=== PATIENT | male | born 1955 | race Caucasian/White ===

== ENCOUNTER 2017-11-18 04:34 | Observation (INO) | payer OTHER ==
[2017-11-18] MEDS ORDERED: NA CHLORIDE 0.9% 500 ML ONE (05:03)
[2017-11-18] MEDS ORDERED: MORPHINE 4 MG/ML SYR ONE (05:03)
[2017-11-18] MEDS ORDERED: ONDANSETRON 4 MG/2 ML VIAL ONE (05:03)
[2017-11-18 05:30] LABS: Potassium 3.8 mmol/L (3.5-5.1)
[2017-11-18 05:37] LABS: Absolute Lymphocytes (CBC) 1.9 K/uL (0.7-4.9); Absolute Monocytes 0.7 K/uL (0.1-1.3); Absolute Neutrophil 5.1 K/uL (1.8-8.0); Basophils % 0.6 % (0-1.3); Eosinophils % 1.9 % (0-4.4); Hematocrit 41.9 % (39.6-49.0); Lymphocytes % 24.3 % (15.3-44.8); MCH 30.3 pg (27.0-35.0); MCV 85.9 fL (80-100); Monocytes % 8.5 % (3.3-12.3); RBC Red Blood Cell Count 4.88 M/uL (4.33-5.43)
[2017-11-18] MEDS ORDERED: KETOROLAC 30 MG/ML INJ ONE (06:12)
--- NOTE | 2017-11-18 06:39 | ER ---
Nurse's Notes [facility] Name: Luis Miguel Gomes Age: 62 yrs Sex: Male : 1955 Arrival Date: 11/18/2017 Time: 04:37 Bed 6 Private MD: Mayank Johnson V Diagnosis: Left ureteral calculus with left obstructive uropathy Presentation: 11/18 04:48 Presenting complaint: Patient states: he thinks he is having a kidney stone he had one bb several years ago and had lithotripsy symptoms today started just prior to arrival with left deep groin pain and difficulty urinating and nausea. Transition of care: patient was not received from another setting of care. Onset of symptoms was November 18, 2017. Risk Assessment: Do you want to hurt yourself or someone else? Patient reports no desire to harm self or others. Initial Sepsis Screen: Does the patient meet any 2 criteria? No. Patient's initial sepsis screen is negative. Does the patient have a suspected source of infection? No. Patient's initial sepsis screen is negative. Care prior to arrival: None. 04:48 Method Of Arrival: Ambulatory bb 04:48 Acuity: PIA 3 bb 04:51 Note pt recently returned from [place] and is on an antimalarial prophylaxis. bb Historical: - Allergies: 04:50 No Known Allergies; bb - Home Meds: 04:50 amlodipine 10 mg tab 1 tab once daily [Active]; metoprolol succinate Oral [Active]; bb pantoprazole 40 mg Oral TbEC 1 tab once daily [Active]; Etodolac Oral [Active]; Fish Oil Oral [Active]; - PMHx: 04:50 Hypertension; bb - PSHx: 04:50 Lithotripsy; bb - Immunization history:: Adult Immunizations up to date. - Social history:: Smoking status: Patient/guardian denies using tobacco, Patient uses alcohol, occasionally. Patient/guardian denies using street drugs. - Ebola Screening: : No symptoms or risks identified at this time. Screenin:11 Abuse screen: Denies threats or abuse. Denies injuries from another. Nutritional lp1 screening: No deficits noted. Tuberculosis screening: No symptoms or risk factors identified. Fall Risk None identified. Assessment: 05:09 General: Appears uncomfortable, Behavior is appropriate for age, restless. Pain: lp1 Complains of pain in left inguinal area Pain currently is 10 out of 10 on a pain scale. Quality of pain is described as sharp, stabbing, Pain began suddenly. Neuro: Level of Consciousness is awake, alert, obeys commands, Oriented to person, place, time, situation. Cardiovascular: Patient's skin is warm and dry. Respiratory: Respiratory effort is even, unlabored. GI: Abdomen is non-distended, Bowel sounds present X 4 quads. Abdomen is tender to palpation in left lower quadrant. : Reports pain in left in suprapubic area with urination. EENT: No signs and/or symptoms were reported regarding the EENT system. Derm: Skin is intact, Skin is diaphoretic, Skin is flushed. Musculoskeletal: Circulation, motion, and sensation intact. 05:30 Reassessment: Patient returned from CT at this time. lp1 06:15 Reassessment: Patient is alert, oriented x 3, equal unlabored respirations, skin lp1 warm/dry/pink. Patient and aware of pending admission Patient states feeling better. Vital Signs: 04:52 BP 159 / 103; Pulse 59; Resp 18 S; Temp 98.5(O); Pulse Ox 97% on R/A; Weight 131.54 kg bb (R); Height 6 ft. 2 in. (187.96 cm) (R); Pain 8/10; 05:07 BP 123 / 82; Pulse 56; Resp 16; Pulse Ox 97% on R/A; lp1 06:15 BP 117 / 76; Pulse 54; Resp 16; Pulse Ox 95% on R/A; lp1 07:26 BP 147 / 95; Pulse 63; Resp 16; Pulse Ox 98% ; sv 04:52 Body Mass Index 37.23 (131.54 kg, 187.96 cm) bb ED Course: 04:37 Patient arrived in ED. es 04:38 Mayank Johnson MD is Private Physician. es 04:49 Triage completed. bb 04:50 Missed attempt(s): 20 gauge in right antecubital area. lp1 04:52 Akhil Cardona MD is Attending Physician. pkl 04:52 Arm band placed on Patient placed in an exam room, on a stretcher, on pulse oximetry. bb Family accompanied patient. 04:55 Inserted saline lock: 20 gauge in left antecubital area, using aseptic technique. Blood lp1 collected. By ELSIE Martin. 05:09 Luanne Liao, RN is Primary Nurse. lp1 05:11 Patient has correct armband on for positive identification. Bed in low position. Call lp1 light in reach. Pulse ox on. NIBP on. 05:[address] via stretcher. kw1 05:22 CT Stone Protocol In Process Unspecified. EDMS 05:25 CT completed. Patient tolerated procedure well. Patient moved back from CT. kw1 06:35 Mayank Johnson MD is Hospitalizing Provider. pkl 06:46 X-ray completed. Portable x-ray completed in exam room. Patient tolerated procedure kw well. 06:52 Primary Nurse role handed off by Luanne Liao RN eb 07:26 No provider procedures requiring assistance completed. Patient admitted, IV remains in sv place. intact. Administered Medications: 05:06 Drug: NS 0.9% 500 ml Route: IV; Rate: bolus; Site: left antecubital; lp1 05:06 Drug: morphine 4 mg Route: IVP; Site: left antecubital; lp1 06:13 Follow up: Response: Pain is decreased lp1 05:06 Drug: Zofran 4 mg Route: IVP; Site: left antecubital; lp1 06:13 Follow up: Response: Marked relief of symptoms lp1 06:13 Drug: TORadol 30 mg Route: IVP; Site: left antecubital; lp1 06:40 Follow up: Response: Pain is decreased lp1 Outcome: 06:38 Decision to Hospitalize by Provider. pkl 07:30 Admitted to Med/surg accompanied by tech, via wheelchair, room 225, with chart, Report sv called to Trish ZIMMERMAN 07:30 Condition: stable 07:30 Instructed on the need for admit. 07:47 Patient left the ED. sv Signatures: Dispatcher [employer] Domitila Sauceda RN Akhil Leal MD MD pkl Carmen Frye Brenda, RN RN bb Whitley, Kimberlee kw Pena, Laura, ELSIE RN lp1 Tonya Coburn kw Kenna Latham
--- NOTE | 2017-11-18 06:39 | EDPHYS ---
Physician Documentation [facility] Name: Luis Miguel Gomes Age: 62 yrs Sex: Male : 1955 Arrival Date: 11/18/2017 Time: 04:37 Bed 6 Private MD: Mayank Johnson V ED Physician Akhil Cardona HPI: 11/18 04:58 This 62 yrs old Male presents to ER via Ambulatory with complaints of pkl Possible Kidney Stone. 04:58 The patient presents with abdominal pain left groin pain. Onset: The symptoms/episode pkl began/occurred just prior to arrival, 1 hour(s) ago. Associated signs and symptoms: Pertinent positives: nausea, difficulty urinating. The patient has experienced similar episodes in the past, several times. Historical: - Allergies: 04:50 No Known Allergies; bb - Home Meds: 04:50 amlodipine 10 mg tab 1 tab once daily [Active]; metoprolol succinate Oral [Active]; bb pantoprazole 40 mg Oral TbEC 1 tab once daily [Active]; Etodolac Oral [Active]; Fish Oil Oral [Active]; - PMHx: 04:50 Hypertension; bb - PSHx: 04:50 Lithotripsy; bb - Immunization history:: Adult Immunizations up to date. - Social history:: Smoking status: Patient/guardian denies using tobacco, Patient uses alcohol, occasionally. Patient/guardian denies using street drugs. - Ebola Screening: : No symptoms or risks identified at this time. ROS: 04:58 Eyes: Negative for injury, pain, redness, and discharge, ENT: Negative for injury, pkl pain, and discharge, Neck: Negative for injury, pain, and swelling, Cardiovascular: Negative for chest pain, palpitations, and edema, Respiratory: Negative for shortness of breath, cough, wheezing, and pleuritic chest pain. 04:58 Abdomen/GI: Positive for abdominal pain, of the left groin. 04:58 Back: Negative for acute changes. 04:58 : Positive for difficulty urinating. 04:58 MS/extremity: Negative for acute changes. 04:58 Skin: Negative for rash. 04:58 Neuro: Negative for altered mental status. Exam: 04:58 Head/Face: Normocephalic, atraumatic. Eyes: Pupils equal round and reactive to light, pkl extra-ocular motions intact. Lids and lashes normal. Conjunctiva and sclera are non-icteric and not injected. Cornea within normal limits. Periorbital areas with no swelling, redness, or edema. ENT: Nares patent. No nasal discharge, no septal abnormalities noted. Tympanic membranes are normal and external auditory canals are clear. Oropharynx with no redness, swelling, or masses, exudates, or evidence of obstruction, uvula midline. Mucous membranes moist. Neck: Trachea midline, no thyromegaly or masses palpated, and no cervical lymphadenopathy. Supple, full range of motion without nuchal rigidity, or vertebral point tenderness. No Meningismus. Chest/axilla: Normal chest wall appearance and motion. Nontender with no deformity. No lesions are appreciated. Cardiovascular: Regular rate and rhythm with a normal S1 and S2. No gallops, murmurs, or rubs. Normal PMI, no JVD. No pulse deficits. Respiratory: Lungs have equal breath sounds bilaterally, clear to auscultation and percussion. No rales, rhonchi or wheezes noted. No increased work of breathing, no retractions or nasal flaring. Abdomen/GI: Soft, non-tender, with normal bowel sounds. No distension or tympany. No guarding or rebound. No evidence of tenderness throughout. Back: No spinal tenderness. No costovertebral tenderness. Full range of motion. Skin: Warm, dry with normal turgor. Normal color with no rashes, no lesions, and no evidence of cellulitis. MS/ Extremity: Pulses equal, no cyanosis. Neurovascular intact. Full, normal range of motion. Neuro: Awake and alert, GCS 15, oriented to person, place, time, and situation. Cranial nerves II-XII grossly intact. Motor strength 5/5 in all extremities. Sensory grossly intact. Cerebellar exam normal. Normal gait. Vital Signs: 04:52 BP 159 / 103; Pulse 59; Resp 18 S; Temp 98.5(O); Pulse Ox 97% on R/A; Weight 131.54 kg bb (R); Height 6 ft. 2 in. (187.96 cm) (R); Pain 8/10; 05:07 BP 123 / 82; Pulse 56; Resp 16; Pulse Ox 97% on R/A; lp1 06:15 BP 117 / 76; Pulse 54; Resp 16; Pulse Ox 95% on R/A; lp1 07:26 BP 147 / 95; Pulse 63; Resp 16; Pulse Ox 98% ; sv 04:52 Body Mass Index 37.23 (131.54 kg, 187.96 cm) bb MDM: 04:52 Patient medically screened. pkl 06:26 Data reviewed: vital signs, nurses notes, lab test result(s), radiologic studies, CT pkl scan. 11/18 04:57 Order name: CBC with Diff; Complete Time: 05:53 pkl 11/18 04:57 Order name: Chem 7; Complete Time: 05:53 pkl 11/18 04:57 Order name: UA pkl 11/18 04:57 Order name: CT Stone Protocol pkl 11/18 06:27 Order name: XRAY CXR (1 view) pkl 11/18 06:27 Order name: EKG; Complete Time: 06:27 pkl Administered Medications: 05:06 Drug: NS 0.9% 500 ml Route: IV; Rate: bolus; Site: left antecubital; lp1 05:06 Drug: morphine 4 mg Route: IVP; Site: left antecubital; lp1 06:13 Follow up: Response: Pain is decreased lp1 05:06 Drug: Zofran 4 mg Route: IVP; Site: left antecubital; lp1 06:13 Follow up: Response: Marked relief of symptoms lp1 06:13 Drug: TORadol 30 mg Route: IVP; Site: left antecubital; lp1 06:40 Follow up: Response: Pain is decreased lp1 Disposition: 11/18/17 06:38 Hospitalization ordered by Mayank Johnson for Observation. Preliminary diagnosis is Left ureteral calculus with left obstructive uropathy. - Bed requested for Telemetry/MedSurg (observation). - Status is Observation. sv - Condition is Stable. - Problem is new. - Symptoms have improved. UTI on Admission? No Signatures: Dispatcher [employer] Domitila Sauceda RN RN sv Webb, Martha RN Akhil Miller MD MD pkl Deena Dalton RN RN bb Luanne Liao RN RN lp1 Corrections: (The following items were deleted from the chart) 06:40 06:38 Hospitalization Ordered by Mayank Johnson MD for Observation. Preliminary diagnosis mw is Left ureteral calculus with left obstructive uropathy. Bed requested for Telemetry/MedSurg (observation). Status is Observation. Condition is Stable. Problem is new. Symptoms have improved. UTI on Admission? No. pkl 07:47 06:40 11/18/2017 06:38 Hospitalization Ordered by Mayank Johnson MD for Observation. sv Preliminary diagnosis is Left ureteral calculus with left obstructive uropathy. Bed requested for Telemetry/MedSurg (observation). Status is Observation. Condition is Stable. Problem is new. Symptoms have improved. UTI on Admission? No. mw
[2017-11-18] MEDS ORDERED: MORPHINE 4 MG/ML SYR IV PRN (06:42)
[2017-11-18] MEDS ORDERED: ACETAMINOPHEN 500 MG TAB PO PRN (06:42)
[2017-11-18] MEDS ORDERED: ONDANSETRON 4 MG/2 ML VIAL IV PRN (06:42)
[2017-11-18] MEDS ORDERED: D5 0.45 NS 1,000 ML IV SCH (07:00)
--- NOTE | 2017-11-18 08:44 | RAD REPORT ---
EXAM DESCRIPTION: CT - Stone Protocol - 11/18/2017 6:11 am CLINICAL HISTORY: Flank pain. left groin pain COMPARISON: Stone Protocol dated 01/14/2017 TECHNIQUE: Axial images were obtained without oral or IV contrast. Lack of contrast limits solid org an and vascular assessment. The [id number] spans the entirety of the system partially obscuring uppermost abdomen and lung bases. Coronal reformatted images were obtained and reviewed. All CT scans are performed using dose optimization technique as appropriate and may include automated exposure control or mA/KV adjustment according to patient size. FINDINGS: The lower lung cruz are clear. Small hiatal hernia. Imaged portions of the liver and spleen show no suspicious findings on non-contrast imaging.Cholecyst ectomy clips. The pancreas and left adrenal gland are normal.14 mm low-density right adrenal gland le lynne is present likely a benign adenoma. No pathologic lymphadenopathy in the abdomen or pelvis. 6 mm stone (1680 HU) is present mid left ureter at the level of L4-5 resulting in moderate left hydro nephrosis. Additional punctate calculi present in both kidneys. No bowel obstruction, free air, free fluid or abscess. Normal appendix noted. No significant bony abnormality. Small bilateral fat containing inguinal hernias. IMPRESSION: 6 mm stone (1680 HU) mid left ureter resulting in moderate left hydronephrosis. Punctate bilateral nephrolithiasis.
--- NOTE | 2017-11-18 08:46 | RAD REPORT ---
EXAM DESCRIPTION: RAD - Chest Single View - 11/18/2017 7:07 am CLINICAL HISTORY: Flank pain Chest pain. COMPARISON: Abdomen 1 View (KUB) dated 01/21/2017; Chest Pa And Lat (2 Views) dated 01/21/2017; Abdome n 1 View (KUB) dated 01/20/2017; CHEST SINGLE VIEW dated 11/07/2012 FINDINGS: Portable technique limits examination quality. The lungs are grossly clear. The heart is mildly enlarged in size. No displaced fractures. IMPRESSION: No acute intrathoracic process suspected.
--- NOTE | 2017-11-18 08:55 | RAD REPORT ---
EXAM DESCRIPTION: RAD - Abdomen 1 View (KUB) - 11/18/2017 8:49 am CLINICAL HISTORY: rule out stone Pain COMPARISON: Abdomen 1 View (KUB) dated 01/21/2017; Abdomen 1 View (KUB) dated 01/20/2017; Stone Protoc ol dated 11/18/2017; Chest Single View dated 11/18/2017 FINDINGS: The bowel gas pattern is non-obstructive. No evidence of free air or pneumatosis. Calcific ation projects superior to the left L5 transverse process compatible with a ureter stone. No significant bony findings. Cholecystectomy clips. IMPRESSION: Calcification superior to the left L5 transverse process noted, compatible with a ureter stone.
[2017-11-18] MEDS ORDERED: Ringers Lactate 1,000 ML IV ONE (10:57)
[2017-11-18] MEDS ORDERED: GENTAMICIN 100 MG/100 ML BAG 100 MG/100 ML BAG IV ONE (11:00)
[2017-11-18] MEDS ORDERED: MIDAZOLAM HCL 2 MG/2 ML INJ ONE (11:51)
[2017-11-18] MEDS ORDERED: FENTANYL CITR 100 MCG/2 ML ONE (12:06)
[2017-11-18] MEDS ORDERED: PROPOFOL 200 MG/20 ML VIAL IV ONE (12:06)
[2017-11-18] MEDS ORDERED: ONDANSETRON HCL 40 MG/20 ML VIAL ONE (12:07)
[2017-11-18] MEDS ORDERED: CODEINE PO PRN (12:38)
[2017-11-18] MEDS ORDERED: ACETAMINOPHEN PO PRN (12:38)
--- NOTE | 2017-11-18 12:47 | P.SSS ---
Patient History Date of Service: 11/18/17 Reason for admission: L SIDE ABDOMEN PAIN, FLANK PAIN. History of Present Illness: MERRY HAS HAD RENAL STONE BEFORE. HE COMES WITH SIMILAR SYMPTOMS. L FLANK AND L ABDOMEN PAIN. HE HAS NO FEVER, NAUSEA, VOMITING. HE IS COMFORTABLE NO Allergies No Known Allergies Allergy (Unverified 01/15/17 01:06) Home Medications: Acetaminophen with Codeine [Acetaminophen-Cod #4 Tablet] 10 mg PO DAILY PRN 09/30 Amlodipine Besylate 10 mg PO DAILY 01/21/17 Metoprolol Succinate/Hctz [Metoprolol ER-Hctz 50-12.5 mg] 35 mg PO DAILY Pantoprazole Sodium 40 mg PO DAILY 01/21/17 Sennosides/Docusate Sodium [Senna-Docusate Sodium Tablet] 200 mg PO DAILY - Past Medical/Surgical History Has patient received pneumonia vaccine in the past: No Diabetic: No -: HTN -: lap hair - Social History Smoking Status: Never smoker Alcohol use: No CD- Drugs: No Caffeine use: No Place of Residence: Home Review of Systems 10-point ROS is otherwise unremarkable Gastrointestinal: Abdominal Pain Physical Examination - Vital Signs Temperature: 97.8 F Blood Pressure: 138/87 Pulse: 58 Respirations: 20 Pulse Ox (%): 94 - Physical Exam General: Alert, Mild distress, Obese HEENT: Atraumatic, PERRLA, Mucous membr. moist/pink, EOMI, Sclerae nonicteric Neck: Supple, 2+ carotid pulse no bruit, No LAD, Without JVD or thyroid abnormality Respiratory: Clear to auscultation bilaterally, Normal air movement Cardiovascular: Regular rate/rhythm, Normal S1 S2 Gastrointestinal: Normal bowel sounds, No tenderness Musculoskeletal: No tenderness Integumentary: No rashes Neurological: Normal gait, Normal speech, Normal strength at 5/5 x4 extr, Normal tone, Normal affect Lymphatics: No axilla or inguinal lymphadenopathy - Studies Laboratory Data (last 24 hrs) 11/18/17 04:50: Sodium 145, Potassium 3.8, BUN 20 H, Creatinine 0.90, Glucose 132 H 11/18/17 04:50: WBC 7.9, Hgb 14.8, Hct 41.9, Plt Count 212 - Diagnosis (Problem(s)) (1) Renal stone Current Visit: No Status: Acute Plan: DR GALVIN IS AWARE, PENDING OR TIMETODAY. DC HOME AFTER THAT. DIET AND FLUID INTAKE ADVISED FOR RENAL STONE. (2) HTN (hypertension) Current Visit: Yes Status: Chronic Plan: ROUTINE FU AT OFFICE WILL WATCH. Qualifiers: Hypertension type: essential hypertension Qualified Code(s): I10 - Essential (primary) hypertension - Disposition Disposition: ROUTINE DISCHARGE
[2017-11-19] MEDS ORDERED: AMLODIPINE 10 MG TAB PO SCH (09:00)
[2017-11-19] MEDS ORDERED: PANTOPRAZOLE 40MG TABLET PO SCH (09:00)
[2017-11-19] MEDS ORDERED: METOPROLOL XL 50 MG TAB PO SCH (09:00)
[2017-11-19] MEDS ORDERED: hydroCHLOROthiazide 12.5 MG CAP PO SCH (09:00)
[2017-11-19] MEDS ORDERED: DOCUSATE NA/SENNA CONC 1 TAB PO SCH (09:00)
== END 2017-11-18 16:39 | disposition home or self-care (01) ==
LOC: ER 04:34 → ERHOLD 06:40 → 2ND 07:31
PROVIDERS: ADMIT Internal Medicine; ATTEND Internal Medicine
PROC: 0TF7XZZ Fragmentation in Left Ureter, External Approach (ICD-10-PCS; principal; 2017-11-18 13:30)
DX: N20.9 Urinary calculus, unspecified (principal); I10 Essential (primary) hypertension; E66.9 Obesity, unspecified; Z68.37 Body mass index [BMI] 37.0-37.9, adult
CPT/HCPCS: 36415; 50590; 71045; 74018; 74176; 76377; 80048; 85025; 96374; 96375; 99285; G0378; J1580; J2250; J2405; J3010

== ENCOUNTER 2017-12-02 09:43 | Day surgery (SDC) | payer OTHER ==
[2017-12-02 09:58] LABS: Absolute Lymphocytes (CBC) 1.5 K/uL (0.7-4.9); Absolute Monocytes 0.6 K/uL (0.1-1.3); Absolute Neutrophil 4.4 K/uL (1.8-8.0); Basophils % 0.7 % (0-1.3); Eosinophils % 2.4 % (0-4.4); Hematocrit 43.4 % (39.6-49.0); MCH 29.6 pg (27.0-35.0); MCV 86.2 fL (80-100); MPV 7.9 fL (7.6-11.3); Monocytes % 8.4 % (3.3-12.3); RBC Red Blood Cell Count 5.03 M/uL (4.33-5.43)
[2017-12-02 09:59] LABS: Protime INR 1.01
[2017-12-02 10:01] LABS: Urine Appearance CLEAR; Urine Bilirubin NEGATIVE (NEG); Urine Blood NEGATIVE (NEG); Urine Color YELLOW; Urine Glucose NEGATIVE (NEG); Urine Protein NEGATIVE (NEG); Urine Specific Gravity 1.015 (1.005-1.030); Urine Urobilinogen 0.2 mg/dL (0.2-1.0)
[2017-12-02 10:12] LABS: Potassium 3.9 mmol/L (3.5-5.1); Uric Acid 5.1 mg/dL (3.5-7.2)
--- NOTE | 2017-12-02 10:13 | RAD REPORT ---
EXAM DESCRIPTION: RAD - Abdomen 1 View (KUB) - 12/02/2017 9:40 am CLINICAL HISTORY: Preop evaluation, pending lithotripsy COMPARISON: KUB December 01 FINDINGS: Linear calcification cluster between the left sacral ala and the left L5 transverse proces s still present. These match the prior day imaging. No other change to calcification pattern. No new finding. IMPRESSION: Linear calcification cluster between the left sacral ala and left L5 transverse process noted and unchanged from prior day study.
[2017-12-02] MEDS ORDERED: GENTAMICIN 100 MG/100 ML BAG 100 MG/100 ML BAG IV ONE (10:15)
[2017-12-02] MEDS ORDERED: Ringers Lactate 1,000 ML IV ONE (10:15)
[2017-12-02 10:21] LABS: Urine Microscopic Reflex ORDER UMIC
[2017-12-02 10:31] LABS: Urine Bacteria <20 /HPF (NONE SEEN); Urine Culture Reflex Order NOT NEEDED; Urine RBC <5 /HPF (NONE SEEN)
[2017-12-02] MEDS ORDERED: LIDOCAINE 2% MPF 5 ML VIAL ONE (11:05)
[2017-12-02] MEDS ORDERED: PROPOFOL 200 MG/20 ML VIAL IV ONE (11:05)
[2017-12-02] MEDS ORDERED: FENTANYL CITR 100 MCG/2 ML ONE (11:05)
[2017-12-02] MEDS ORDERED: MIDAZOLAM HCL 2 MG/2 ML INJ ONE (11:05)
--- NOTE | 2017-12-02 15:36 | EKG ---
Test Date: 2017-12-02 Test Time: 09:21:14 Shank Turner: MELBA MEASUREMENT RESULTS: Intervals: Rate: 50 MS: 172 QRSD: 104 QT: 440 QTc: 401 [place]: P: 54 MS: 172 QRS: 26 T: 28 INTERPRETIVE STATEMENTS: Sinus bradycardia Otherwise normal ECG Compared to ECG 01/21/2017 10:00:08 No significant changes Electronically Signed On 12-02-17 15:34:39 CDT by Ruddy Ron
== END 2017-12-02 12:38 | disposition home or self-care (01) ==
LOC: OR 09:43
PROVIDERS: ATTEND Urology
PROC: 0TF4XZZ Fragmentation in Left Kidney Pelvis, External Approach (ICD-10-PCS; principal; 2017-12-02 12:45)
DX: N20.0 Calculus of kidney (principal); Z53.8 Procedure and treatment not carried out for other reasons; I10 Essential (primary) hypertension; E66.9 Obesity, unspecified; K21.9 Gastro-esophageal reflux disease without esophagitis
CPT/HCPCS: 36415; 74018; 80048; 81003; 81015; 84100; 84550; 85025; 85610; 85730; 87086; 87088; 93005; J1580; J2250; J3010

== ENCOUNTER 2017-12-16 08:50 | Day surgery (SDC) | payer OTHER ==
[2017-12-16] MEDS ORDERED: Ringers Lactate 1,000 ML IV ONE (09:15)
[2017-12-16] MEDS ORDERED: GENTAMICIN 100 MG/100 ML BAG 100 MG/100 ML BAG IV ONE (09:15)
[2017-12-16] MEDS ORDERED: PROPOFOL 200 MG/20 ML VIAL IV ONE (10:11)
[2017-12-16] MEDS ORDERED: FENTANYL CITR 100 MCG/2 ML ONE (10:11)
[2017-12-16] MEDS ORDERED: LIDOCAINE 2% MPF 5 ML VIAL ONE (10:11)
[2017-12-16] MEDS ORDERED: MIDAZOLAM HCL 2 MG/2 ML INJ ONE (10:11)
[2017-12-16] MEDS ORDERED: ONDANSETRON HCL 40 MG/20 ML VIAL ONE (10:13)
--- NOTE | 2017-12-16 10:30 | RAD REPORT ---
EXAM DESCRIPTION: RAD - Abdomen 1 View (KUB) - 12/16/2017 9:14 am CLINICAL HISTORY: ICD N 20.0 FINDINGS: The bowel gas pattern is unremarkable. Three calcifications within the left pelvis have migrated distally when compared to a 12/02/2017 exam ination and are compatible with distal ureteral calculi.
== END 2017-12-16 13:36 | disposition home or self-care (01) ==
LOC: OR 08:50
PROVIDERS: ATTEND Urology
PROC: 0TF7XZZ Fragmentation in Left Ureter, External Approach (ICD-10-PCS; principal; 2017-12-16 11:00)
DX: N20.2 Calculus of kidney with calculus of ureter (principal); I10 Essential (primary) hypertension; K21.9 Gastro-esophageal reflux disease without esophagitis
CPT/HCPCS: 50590; 74018; J1580; J2250; J2405; J3010

== ENCOUNTER 2018-01-01 21:58 | Observation (INO) | payer OTHER ==
--- NOTE | 2018-01-01 22:31 | EDPHYS ---
Physician Documentation [facility] Name: Luis Miguel Gomes Age: 62 yrs Sex: Male : 1955 Arrival Date: 01/01/2018 Time: 21:59 Bed 7 Private MD: Mayank Johnson V ED Physician Marcelo Barker HPI: 01/01 22:25 This 62 yrs old Male presents to ER via Ambulatory with complaints of Chest elisha Tightness, High Blood Pressure. 22:25 The patient or guardian reports chest pain that is located primarily in the substernal elisha area, anterior chest wall, left. Onset: today. The pain does not radiate. Associated signs and symptoms: Pertinent positives: dizziness, recent travel. The chest pain is described as a pressure, squeezing. Modifying factors: The symptoms are alleviated by nothing. the symptoms are aggravated by nothing. Severity of pain: At its worst the pain was mild in the emergency department the pain is unchanged. The patient has not experienced similar symptoms in the past. Historical: - Allergies: 22:17 No Known Allergies; bb - Home Meds: 22:17 amlodipine 10 mg tab 1 tab once daily [Active]; metoprolol succinate 25 mg oral Tb24 1 bb tab once daily [Active]; pantoprazole 40 mg Oral TbEC 1 tab once daily [Active]; - PMHx: 22:17 Hypertension; GERD; bb - PSHx: 22:17 Cholecystectomy; Tonsillectomy; bilateral shoulder spurs; bb - Immunization history:: Adult Immunizations up to date. - Social history:: Smoking status: Patient/guardian denies using tobacco, Patient uses alcohol, occasionally. Patient/guardian denies using street drugs. - Ebola Screening: : No symptoms or risks identified at this time. - Family history:: not pertinent. ROS: 22:25 Constitutional: Negative for fever, chills, and weight loss, Eyes: Negative for injury, elisha pain, redness, and discharge, ENT: Negative for injury, pain, and discharge, Neck: Negative for injury, pain, and swelling, Respiratory: Negative for shortness of breath, cough, wheezing, and pleuritic chest pain, Abdomen/GI: Negative for abdominal pain, nausea, vomiting, diarrhea, and constipation, Back: Negative for injury and pain, : Negative for injury, bleeding, discharge, and swelling, MS/Extremity: Negative for injury and deformity, Skin: Negative for injury, rash, and discoloration, Psych: Negative for depression, anxiety, suicide ideation, homicidal ideation, and hallucinations, Allergy/Immunology: Negative for hives, rash, and allergies, Endocrine: Negative for neck swelling, polydipsia, polyuria, polyphagia, and marked weight changes, Hematologic/Lymphatic: Negative for swollen nodes, abnormal bleeding, and unusual bruising. 22:25 Cardiovascular: Positive for edema. 22:25 Neuro: Positive for dizziness, weakness. Exam: 22:25 Constitutional: This is a well developed, well nourished patient who is awake, alert, elisha and in no acute distress. Head/Face: Normocephalic, atraumatic. Eyes: Pupils equal round and reactive to light, extra-ocular motions intact. Lids and lashes normal. Conjunctiva and sclera are non-icteric and not injected. Cornea within normal limits. Periorbital areas with no swelling, redness, or edema. ENT: Nares patent. No nasal discharge, no septal abnormalities noted. Tympanic membranes are normal and external auditory canals are clear. Oropharynx with no redness, swelling, or masses, exudates, or evidence of obstruction, uvula midline. Mucous membranes moist. Neck: Trachea midline, no thyromegaly or masses palpated, and no cervical lymphadenopathy. Supple, full range of motion without nuchal rigidity, or vertebral point tenderness. No Meningismus. Chest/axilla: Normal chest wall appearance and motion. Nontender with no deformity. No lesions are appreciated. Cardiovascular: Regular rate and rhythm with a normal S1 and S2. No gallops, murmurs, or rubs. Normal PMI, no JVD. No pulse deficits. Abdomen/GI: Soft, non-tender, with normal bowel sounds. No distension or tympany. No guarding or rebound. No evidence of tenderness throughout. Back: No spinal tenderness. No costovertebral tenderness. Full range of motion. Male : Normal genitalia with no discharge or lesions. Skin: Warm, dry with normal turgor. Normal color with no rashes, no lesions, and no evidence of cellulitis. MS/ Extremity: Pulses equal, no cyanosis. Neurovascular intact. Full, normal range of motion. Neuro: Awake and alert, GCS 15, oriented to person, place, time, and situation. Cranial nerves II-XII grossly intact. Motor strength 5/5 in all extremities. Sensory grossly intact. Cerebellar exam normal. Normal gait. Psych: Awake, alert, with orientation to person, place and time. Behavior, mood, and affect are within normal limits. 22:25 Respiratory: the patient does not display signs of respiratory distress, Breath sounds: are clear throughout, Respiratory rate: 18 22:25 Musculoskeletal/extremity: ROM: no acute changes, intact in all extremities, full active range of motion, full passive range of motion, Circulation is intact in all extremities. Sensation intact. Compartment Syndrome exam of affected extremity: is normal. DVT Exam: No signs of deep vein thrombosis. no pain, no swelling, no tenderness, negative Homans' sign noted on exam, no appreciated bluish discoloration, no erythema, no increased warmth. Vital Signs: 22:17 BP 159 / 96; Pulse 58; Resp 18 S; Temp 97.8(O); Pulse Ox 99% on R/A; Weight 133.81 kg bb (R); Height 6 ft. 2 in. (187.96 cm) (R); Pain 2/10; 23:00 BP 149 / 92; Pulse 58; Resp 18; Pulse Ox 98% ; ea 01/02 00:00 BP 135 / 91; Pulse 55; Resp 18; Pulse Ox 98% on R/A; ea 01/01 22:17 Body Mass Index 37.88 (133.81 kg, 187.96 cm) bb MDM: 01/01 22:14 Patient medically screened. [facility] 22:29 Data reviewed: vital signs, nurses notes, lab test result(s), EKG, radiologic studies, [facility] CT scan, plain films. 01/01 22:16 Order name: Basic Metabolic Panel 01/01 22:16 Order name: CBC with Diff 01/01 22:16 Order name: LFT's; Complete Time: 23:06 01/01 22:16 Order name: Magnesium; Complete Time: 23:06 01/01 22:16 Order name: NT PRO-BNP; Complete Time: 23:06 01/01 22:16 Order name: PT-INR; Complete Time: 23:47 01/01 22:16 Order name: Troponin (emerg Dept Use Only); Complete Time: 23:06 01/01 22:16 Order name: Basic Metabolic Panel; Complete Time: 23:06 EDMS 01/01 22:16 Order name: CBC with Automated Diff; Complete Time: 23:06 EDMS 01/01 22:25 Order name: Urine Culture [facility] 01/01 22:37 Order name: Basic Metabolic Panel EDAK 01/01 22:37 Order name: Basic Metabolic Panel EDAK 01/01 22:16 Order name: XRAY Chest (1 view) 01/01 22:16 Order name: EKG; Complete Time: 22:16 ea 01/01 22:36 Order name: CONS Physician Consult EDAK 01/01 22:36 Order name: CONS Physician Consult EDMS 01/01 22:36 Order name: Consistent Carb (ADA) 1800 Job EDMS 01/01 22:36 Order name: Echo with Doppler EDAK 01/01 22:37 Order name: CBC with Automated Diff EDAK 01/01 22:37 Order name: CBC with Automated Diff EDAK 01/01 22:37 Order name: Troponin I EDAK 01/01 22:37 Order name: Troponin I EDAK 01/01 22:37 Order name: Troponin I EDAK 01/01 22:50 Order name: Lipase; Complete Time: 23:06 EDAK 01/01 22:50 Order name: D-Dimer; Complete Time: 23:47 EDAK 01/01 22:16 Order name: Cardiac monitoring; Complete Time: 22:21 ea 01/01 22:16 Order name: EKG - Nurse/Tech; Complete Time: 22:21 ea 01/01 22:16 Order name: IV Saline Lock; Complete Time: 22:21 ea 01/01 22:16 Order name: Labs collected and sent; Complete Time: 22:21 ea 01/01 22:16 Order name: O2 Per Protocol; Complete Time: 22:21 ea 01/01 22:16 Order name: O2 Sat Monitoring; Complete Time: 22:21 ea 01/01 22:36 Order name: EKG Electrocardiogram EDAK 01/01 22:37 Order name: EKG Electrocardiogram EDAK 01/01 22:37 Order name: EKG Electrocardiogram EDAK 01/01 22:37 Order name: EKG Electrocardiogram EDMS Administered Medications: 23:06 Drug: Lovenox 100 mg Route: Sub-Q; Site: right lower abdomen; 01/02 00:00 Follow up: Response: No adverse reaction 01/01 23:08 Drug: Aspirin Chewable Tablet 324 mg Route: PO; ea 01/02 00:00 Follow up: Response: No adverse reaction 01/01 23:08 Drug: Pepcid 20 mg Route: IVP; Site: left antecubital; ea 01/02 00:00 Follow up: Response: No adverse reaction ea Disposition: 01/01/18 22:30 Hospitalization ordered by Mayank Johnson for Inpatient Admission. Preliminary diagnosis are Chest pain, unspecified, Essential (primary) hypertension, Unspecified kidney failure. - Bed requested for Telemetry/MedSurg (observation). - Status is Inpatient Admission. ea - Condition is Stable. - Problem is new. - Symptoms have improved. UTI on Admission? No Signatures: Dispatcher [employer] EDMS Tonya Vazquez RN RN kl Anderson, Corey, MD MD cha Ballard, Brenda, RN RN bb Antunez, Elena, RN RN ea Corrections: (The following items were deleted from the chart) 01/01 22:50 22:26 LIPASE+C.LAB.BRZ ordered. EDAK EDAK 22:50 22:26 D-DIMER+COAG.LAB.BRZ ordered. [facility] EDAK 23:07 22:30 Hospitalization Ordered by Mayank Johnson MD for Inpatient Admission. Preliminary elisha diagnosis is Chest pain, unspecified; Essential (primary) hypertension. Bed requested for Telemetry/MedSurg (observation). Status is Inpatient Admission. Condition is Stable. Problem is new. Symptoms have improved. UTI on Admission? No. elisha 23:32 23:07 01/01/2018 22:30 Hospitalization Ordered by Mayank Johnson MD for Inpatient kl Admission. Preliminary diagnosis is Chest pain, unspecified; Essential (primary) hypertension; Unspecified kidney failure. Bed requested for Telemetry/MedSurg (observation). Status is Inpatient Admission. Condition is Stable. Problem is new. Symptoms have improved. UTI on Admission? No. elisha 01/02 01:00 01/01 23:32 01/01/2018 22:30 Hospitalization Ordered by Mayank Johnson MD for Inpatient ea Admission. Preliminary diagnosis is Chest pain, unspecified; Essential (primary) hypertension; Unspecified kidney failure. Bed requested for Telemetry/MedSurg (observation). Status is Inpatient Admission. Condition is Stable. Problem is new. Symptoms have improved. UTI on Admission? No. kl
--- NOTE | 2018-01-01 22:31 | ER ---
Nurse's Notes [facility] Name: Luis Miguel Gomes Age: 62 yrs Sex: Male : 1955 Arrival Date: 01/01/2018 Time: 21:59 Bed 7 Private MD: Mayank Johnson V Diagnosis: Chest pain, unspecified;Essential (primary) hypertension;Unspecified kidney failure Presentation: 01/01 22:11 Presenting complaint: Patient states: he flew home from [place] this afternoon and bb thinks his blood pressure is elevated he feels flushed and he is having chest tightness and discomfort since approx noon. Transition of care: patient was not received from another setting of care. Onset of symptoms was January 01, 2018. Risk Assessment: Do you want to hurt yourself or someone else? Patient reports no desire to harm self or others. Initial Sepsis Screen: Does the patient meet any 2 criteria? No. Patient's initial sepsis screen is negative. Does the patient have a suspected source of infection? No. Patient's initial sepsis screen is negative. Care prior to arrival: None. 22:11 Method Of Arrival: Ambulatory bb 22:11 Acuity: PIA 3 bb Historical: - Allergies: 22:17 No Known Allergies; bb - Home Meds: 22:17 amlodipine 10 mg tab 1 tab once daily [Active]; metoprolol succinate 25 mg oral Tb24 1 bb tab once daily [Active]; pantoprazole 40 mg Oral TbEC 1 tab once daily [Active]; - PMHx: 22:17 Hypertension; GERD; bb - PSHx: 22:17 Cholecystectomy; Tonsillectomy; bilateral shoulder spurs; bb - Immunization history:: Adult Immunizations up to date. - Social history:: Smoking status: Patient/guardian denies using tobacco, Patient uses alcohol, occasionally. Patient/guardian denies using street drugs. - Ebola Screening: : No symptoms or risks identified at this time. - Family history:: not pertinent. Screenin:23 Abuse screen: Denies threats or abuse. Nutritional screening: No deficits noted. ea Tuberculosis screening: No symptoms or risk factors identified. Fall Risk Assessment: 22:15 General: Appears uncomfortable, Behavior is calm, cooperative, appropriate for age. ea Pain: Complains of pain in anterior aspect of left upper chest and mid-sternal area Quality of pain is described as tightness. Neuro: Level of Consciousness is awake, alert, obeys commands, Oriented to person, place, time, situation. Cardiovascular: Heart tones S1 S2 present Patient's skin is warm and dry. Respiratory: Airway is patent Respiratory effort is even, unlabored, Respiratory pattern is regular, symmetrical. GI: No signs and/or symptoms were reported involving the gastrointestinal system. : No signs and/or symptoms were reported regarding the genitourinary system. Derm: Skin is pink, warm \T\ dry. 23:00 Reassessment: Patient and/or family updated on plan of care and expected duration. Pain ea level reassessed. Patient is alert, oriented x 3, equal unlabored respirations, skin warm/dry/pink. 01/02 00:33 Reassessment: Patient and/or family updated on plan of care and expected duration. Pain ea level reassessed. Patient is alert, oriented x 3, equal unlabored respirations, skin warm/dry/pink. Vital Signs: 01/01 22:17 BP 159 / 96; Pulse 58; Resp 18 S; Temp 97.8(O); Pulse Ox 99% on R/A; Weight 133.81 kg bb (R); Height 6 ft. 2 in. (187.96 cm) (R); Pain 2/10; 23:00 BP 149 / 92; Pulse 58; Resp 18; Pulse Ox 98% ; ea 01/02 00:00 BP 135 / 91; Pulse 55; Resp 18; Pulse Ox 98% on R/A; ea 01/01 22:17 Body Mass Index 37.88 (133.81 kg, 187.96 cm) ED Course: 01/01 21:59 Patient arrived in ED. mr 21:59 Mayank Johnson MD is Private Physician. mr 22:14 Marcelo Barker MD is Attending Physician. elisha 22:14 Triage completed. bb 22:15 Pippa Zavala RN is Primary Nurse. ea 22:17 Arm band placed on Patient placed in an exam room, on a stretcher, on pulse oximetry. bb Family accompanied patient. 22:19 EKG completed in triage. Results shown to MD. bb 22:20 Inserted saline lock: 20 gauge in left antecubital area, using aseptic technique. Blood ea collected. Patient maintains SpO2 saturation greater than 95% on room air. 22:23 Patient has correct armband on for positive identification. Bed in low position. Call ea light in reach. Side rails up X 1. monitor tech on. Pulse ox on. NIBP on. 22:30 XRAY Chest (1 view) In Process Unspecified. EDIL 22:30 Mayank Johnson MD is Hospitalizing Provider. [facility] 01/02 00:32 No provider procedures requiring assistance completed. Patient admitted, IV remains in ea place. Administered Medications: 01/01 23:06 Drug: Lovenox 100 mg Route: Sub-Q; Site: right lower abdomen; ea 01/02 00:00 Follow up: Response: No adverse reaction ea 01/01 23:08 Drug: Aspirin Chewable Tablet 324 mg Route: PO; ea 01/02 00:00 Follow up: Response: No adverse reaction ea 01/01 23:08 Drug: Pepcid 20 mg Route: IVP; Site: left antecubital; ea 01/02 00:00 Follow up: Response: No adverse reaction ea Outcome: 01/01 22:30 Decision to Hospitalize by Provider. [facility] 01/02 00:32 Instructed on the need for admit. ea 00:57 Admitted to Med/surg accompanied by tech, via wheelchair, room 404, with chart, Report ea called to Rosmery ZIMMERMAN 00:57 Condition: stable 01:00 Patient left the ED. ea Signatures: Dispatcher [employer] Marcelo Knight MD MD cha Rivera, Mary mr Ballard, Brenda, RN RN Pippa Magana RN RN kori
[2018-01-01] MEDS ORDERED: ACETAMINOPHEN 500 MG TAB PO PRN (22:33)
[2018-01-01] MEDS ORDERED: ONDANSETRON 4 MG/2 ML VIAL IV PRN (22:33)
[2018-01-01] MEDS ORDERED: MORPHINE 4 MG/ML SYR IV PRN (22:33)
[2018-01-01 22:45] LABS: Absolute Lymphocytes (CBC) 2.2 K/uL (0.7-4.9); Absolute Monocytes 0.8 K/uL (0.1-1.3); Absolute Neutrophil 4.5 K/uL (1.8-8.0); Basophils % 0.6 % (0-1.3); Eosinophils % 2.4 % (0-4.4); Hematocrit 41.4 % (39.6-49.0); Lymphocytes % 28.2 % (15.3-44.8); MCH 29.8 pg (27.0-35.0); MCV 85.9 fL (80-100); MPV 7.8 fL (7.6-11.3); Monocytes % 10.1 % (3.3-12.3); RBC Red Blood Cell Count 4.82 M/uL (4.33-5.43)
[2018-01-01 22:59] LABS: ALT/SGPT 26 U/L (12-78); AST/SGOT 16 U/L (15-37); Albumin 3.6 g/dL (3.4-5.0); Alkaline Phosphatase 73 U/L (45-117); BUN Blood Urea Nitrogen 20 mg/dL (7-18); Bicarbonate 29 mmol/L (21-32); Bilirubin Direct < 0.1 mg/dL (0-0.2); Bilirubin Total 0.3 mg/dL (0.2-1.0); Glucose Level 103 mg/dL (74-106); Lipase 146 U/L (73-393); Magnesium 2.2 mg/dL (1.8-2.4); NT PRO-BNP 20 pg/mL (<125); Potassium 4.2 mmol/L (3.5-5.1); Protein, Total 6.9 g/dL (6.4-8.2); Sodium Level 144 mmol/L (136-145); Troponin (Emerg Dept Use Only) < 0.02 ng/mL (0.0-0.045)
[2018-01-01 23:05] LABS: Protime INR 1.06
[2018-01-01] MEDS ORDERED: ASPIRIN 81 MG CHEWABLE TABLET ONE (23:05)
[2018-01-01] MEDS ORDERED: FAMOTIDINE 20 MG/2 ML VIAL IV ONE (23:06)
[2018-01-01] MEDS ORDERED: ENOXAPARIN 100 MG/ML SYR SQ ONE (23:06)
[2018-01-02 02:27] VITALS: BMI 37.8
[2018-01-02 04:56] LABS: Absolute Lymphocytes (CBC) 2.1 K/uL (0.7-4.9); Absolute Monocytes 0.6 K/uL (0.1-1.3); Absolute Neutrophil 3.3 K/uL (1.8-8.0); Basophils % 0.6 % (0-1.3); Eosinophils % 2.9 % (0-4.4); Hematocrit 38.1 % (39.6-49.0); Lymphocytes % 33.9 % (15.3-44.8); MCH 29.9 pg (27.0-35.0); Monocytes % 9.8 % (3.3-12.3); RBC Red Blood Cell Count 4.44 M/uL (4.33-5.43)
[2018-01-02 05:04] LABS: Potassium 3.6 mmol/L (3.5-5.1)
[2018-01-02] MEDS ORDERED: METOPROLOL XL 25 MG TAB PO SCH (06:00)
--- NOTE | 2018-01-02 06:50 | EKG ---
Test Date: 2018-01-01 Test Time: 22:08:17 Cigar Sorter: RADHA MEASUREMENT RESULTS: Intervals: Rate: 57 NC: 170 QRSD: 112 QT: 440 QTc: 428 [place]: P: 57 NC: 170 QRS: 30 T: 35 INTERPRETIVE STATEMENTS: Sinus bradycardia Otherwise normal ECG Compared to ECG 12/02/2017 09:21:14 No significant changes Electronically Signed On 01-02-18 06:49:02 CDT by Ruddy Ron
[2018-01-02] MEDS ORDERED: INFLUENZA VACCINE (for 3y+) 0.5 ML DOSE IMVAC ONE (08:00)
--- NOTE | 2018-01-02 08:07 | RAD REPORT ---
EXAM DESCRIPTION: Edi Single View01/01/2018 10:31 pm CLINICAL HISTORY: Chest pain COMPARISON: 11/18/2017 FINDINGS: The lungs appear clear of acute infiltrate. The heart is mildly to moderately enlarged. A monster is tortuous/ectatic IMPRESSION: No acute abnormalities displayed
[2018-01-02] MEDS ORDERED: AMLODIPINE 10 MG TAB PO SCH (09:00)
[2018-01-02] MEDS ORDERED: ASPIRIN EC 81 MG TAB PO SCH (09:00)
[2018-01-02] MEDS ORDERED: ENOXAPARIN 100 MG/ML SYR SQ SCH (09:00)
--- NOTE | 2018-01-02 12:15 | RAD REPORT ---
EXAM DESCRIPTION: CT - Chest Angio - 01/02/2018 12:08 pm CLINICAL HISTORY: Chest pain, shortness of breath COMPARISON: Chest film January 01 TECHNIQUE: Dynamically enhanced 3 mm thick images of the chest were obtained during administration o f approximately 150mL Isovue 370 IV contrast. Coronal and oblique MIP reconstruction images were gene rated and reviewed. Exam utilizes a protocol to evaluate the pulmonary arterial tree. All CT scans are performed using dose optimization technique as appropriate and may include automated exposure control or mA/KV adjustment according to patient size. FINDINGS: No pulmonary emboli are identified. The aorta as imaged shows no acute or suspicious finding. No pericardial thickening or effusion. No mass or focal infiltrate identifiable. Minimal prominence of the interstitium could indicate a mil d edema or infiltrate. No focal bacterial pneumonia findings. No pleural effusion or pleural thickeni ng. No mediastinal or hilar suspicious masses. No chest wall masses or abnormal axillary lymphadenopathy. IMPRESSION: No pulmonary emboli identified. No mass or consolidation. Minimal prominence of the interstitium could indicate minimal viral infiltrate or edema.
--- NOTE | 2018-01-02 12:22 | CON ---
Date of Consultation: 01/02/[address] Johnson's service on 01/01/2018. I saw the patient on 01/02/2018. Reason For Consultation: Chest pain and hypertension. History Of Present Illness: Mr. Gomes is a 62-year-old white male with history of hypertension, g astroesophageal reflux disease, recent lithotripsy x2, while n the plane flying from [place] back to [place] when he developed dizziness, blurriness. He was hypertensive. He had pinpoint type of chest pain over the left side that lasted a couple hours. No nausea, vomiting. No PND, orthopnea, pedal edema, palpitations, or syncope. He had a normal chest x-ray, normal EKG, normal troponin, nor mal CPK, normal BNP. His blood pressure when he came into the emergency room was 159/96. He feels t hat his blood pressure has been high recently. His blood pressure now is 130/74. He is asymptomatic now Past Medical History: As stated above. Allergies: NONE. Review of Systems: Negative. Social History: Negative for tobacco, drug, or alcohol. Family History: Negative. Medications: At home include Norvasc 10 mg daily, metoprolol 25 mg daily. Physical Examination: Vital Signs: He weighed 295 pounds. Vital signs were stable, afebrile, sinus bradycardia. HEENT: Negative. Neck: Supple without any bruit. Chest: Clear. Cardiac: Revealed regular rhythm and rate without any murmurs, gallops, or rubs. Abdomen: Benign. Extremities: Revealed no clubbing, cyanosis, or edema. Diagnostic Data: Normal as stated earlier. Impression And Plan: 1.Atypical chest pain, it is pinpoint. The patient can point to with a finger. 2.Hypertension, poorly controlled. 3.Gastroesophageal reflux disease. 4.Status post lithotripsy for nephrolithiasis recently. An echocardiogram is pending. If this is n ormal, the patient can go home. I will make a plan for him to have an outpatient stress test. I thi nk he needs to go home on a higher dose of beta blockers. NIA/LAILA Voice ID: [id number] Report ID: [id number]
[2018-01-02 12:31] VITALS: BP 142/84; TEMP 97.7; O2SAT 97
--- NOTE | 2018-01-02 12:53 | P.SSS ---
Patient History Date of Service: 01/02/18 Reason for admission: CHEST PAIN IN AIR RIDE FROM [place] TO HERE History of Present Illness: MR. CHAMBERS HAS HTN AND WHILE FLYING FROM [facility] TO [place], HE HAD CHEST PAIN, L SIDE AND BP WAS HIGH. HE STILL HAS PAIN AFTER 24 HOURS BUT LOT MILDER. HE HAS NO OTHER SS LIKE DIAPHORESIS, RADIATION OF PAIN OR NAUSEA. HE HAS NO DYSPNEA. HE HAS STAYED OVERNIGHT AND IS STABLE. HIS CE ARE NEGATIVE AND EKG IS NORMAL ALSO. I DID CT ANGIOGRAM AND THAT IS NEGATIVE FOR PE. HE IS STABLE TO GO HOME WITH FU WITH DR ANG FOR ST TEST. Allergies No Known Allergies Allergy (Verified 12/02/17 09:04) Home Medications: Amlodipine Besylate 10 mg PO DAILY 01/21/17 Metoprolol Succinate [Toprol Xl*] 50 mg PO DAILY #90 tab 01/02/18 Nitroglycerin 0.4 mg SL Q2H PRN #25 tab.subl 01/02/18 - Past Medical/Surgical History Diabetic: No -: HTN -: GERD -: lap hair -: tonsilectomy -: hudson shoulder bursitis - Family History Mother -: Heart disease, Cancer Father -: Cancer Sister -: Cancer Notes: beast Brother -: Cancer Notes: tumor neck - Social History Smoking Status: Former smoker Alcohol use: Yes CD- Drugs: No Caffeine use: Yes Place of Residence: Home Review of Systems 10-point ROS is otherwise unremarkable Cardiovascular: Chest Pain Physical Examination - Vital Signs Temperature: 97.7 F Blood Pressure: 142/84 Pulse: 56 Respirations: 20 Pulse Ox (%): 97 - Physical Exam General: Alert, In no apparent distress HEENT: Atraumatic, PERRLA, Mucous membr. moist/pink, EOMI, Sclerae nonicteric Neck: Supple, 2+ carotid pulse no bruit, No LAD, Without JVD or thyroid abnormality Respiratory: Clear to auscultation bilaterally, Normal air movement Cardiovascular: Regular rate/rhythm, Normal S1 S2 Gastrointestinal: Normal bowel sounds, No tenderness Musculoskeletal: No tenderness Integumentary: No rashes Neurological: Normal gait, Normal speech, Normal strength at 5/5 x4 extr, Normal tone, Normal affect Lymphatics: No axilla or inguinal lymphadenopathy - Studies Laboratory Data (last 24 hrs) 01/01/18 22:25: Lipase Cancelled 01/01/18 22:16: PT 12.5, INR 1.06 01/01/18 22:16: WBC 7.7, Hgb 14.3, Hct 41.4, Plt Count 234 01/01/18 22:16: Sodium 144, Potassium 4.2, BUN 20 H, Creatinine 1.40 H, Glucose 103, Magnesium 2.2, Total Bilirubin 0.3, AST 16, ALT 26, Alkaline Phosphatase 73 , Lipase 146 - Diagnosis (Problem(s)) (1) Atypical chest pain Current Visit: Yes Status: Acute Plan: ABOVE, STABLE. HE IS GOING ON A CRUISE IN AM THIS IS WHY I ALSO DID ANGIOGRAM , CT TO RULE OUT PE. FU IN 10 DAYS A OFFICE. - Disposition Disposition: ROUTINE DISCHARGE Condition: FAIR Patient Discharge Instructions: Your lung scan did not show any clots.
--- NOTE | 2018-01-03 04:20 | EKG ---
Test Date: 2018-01-02 Test Time: 08:22:33 Business Analyst Project Manager: DEREK MEASUREMENT RESULTS: Intervals: Rate: 54 KS: 174 QRSD: 104 QT: 444 QTc: 421 [place]: P: 52 KS: 174 QRS: 27 T: 36 INTERPRETIVE STATEMENTS: Sinus bradycardia Otherwise normal ECG Compared to ECG 01/01/2018 22:08:17 No significant changes Electronically Signed On 01-03-18 04:17:29 CDT by Ruddy Ron
--- NOTE | 2018-01-05 08:10 | ECHO ---
HEIGHT: 6 ft 2 in WEIGHT: 295 lb 0 oz DATE OF STUDY: 01/02/[address]: Marcelo Barker MD 2-DIMENSIONAL: YES M.MODE: YES DOPPLER: YES COLOR FLOW: YES TDS: NO PORTABLE: NO DEFINITY: NO BUBBLE STUDY: NO DIAGNOSIS: CHEST PAIN CARDIAC HISTORY: CATHERIZATION: NO SURGERY: NO PROSTHETIC VALVE: NO PACEMAKER: NO MEASUREMENTS (cm) DIASTOLIC (NORMALS) SYSTOLIC (NORMALS) IVSd 1.4 (0.6-1.2) LA Diam 4.2 (1.9-4.0) LVEF 66% LVIDd 5.1 (3.5-5.7) LVIDs 3.3 (2.0-3.5) %FS 36% LVPWd 1.6 (0.6-1.2) Ao Diam 3.5 (2.0-3.7) 2 DIMENSIONAL ASSESSMENT: RIGHT ATRIUM: NORMAL LEFT ATRIUM: NORMAL RIGHT VENTRICLE: NORMAL LEFT VENTRICLE: NORMAL TRICUSPID VALVE: NORMAL MITRAL VALVE: NORMAL PULMONIC VALVE: NORMAL AORTIC VALVE: NORMAL PERICARDIAL EFFUSION: NONE AORTIC ROOT: NORMAL LEFT VENTRICULAR WALL MOTION: NORMAL. DOPPLER/COLOR FLOW: NORMAL. COMMENTS: NORMAL 2D ECHO WITH DOPPLER. NO WALL MOTION ABNORMALITY. NO EFFUSION. TECHNOLOGIST: SWATHI KAM
== END 2018-01-02 14:42 | disposition home or self-care (01) ==
LOC: ER 21:58 → ERHOLD 22:31 → 4TH 01-02 00:40
PROVIDERS: ADMIT Internal Medicine; ATTEND Internal Medicine
DX: R07.89 Other chest pain (principal); I10 Essential (primary) hypertension; K21.9 Gastro-esophageal reflux disease without esophagitis; Z23 Encounter for immunization
CPT/HCPCS: 36415; 71045; 71275; 80048; 80076; 83690; 83735; 83880; 84484; 85025; 85379; 85610; 87086; 87088; 93005; 93306; 96372; 96374; 99285; G0008; G0378; J1650; Q2035; Q9967

== ENCOUNTER 2023-02-16 09:52 | Emergency (ER) | payer OTHER ==
--- OUTSIDE RECORDS SUMMARY | 2023-02-16 09:56 | XMS REPORT | Continuity of Care Document ---
:1955 Author Organization [facility] Address [address] [place] [address] Care Team Providers Name Role Phone Tamara Johnson MD Primary Care Physician Alex Foote MD Attending Clinician Theresa Gonzalez MA Attending Clinician Unavailable TAMARA JOHNSON Attending Clinician Unavailable Payers Payer Name Policy Type Policy Number Effective Date Expiration Date S ource Problems Condition Condition Condition Status Onset Resolution Last Treating Co mments Source Name Details Category Date Date Treatment Clinician Date Aortic Aortic Disease Active [facility] root root 2-01 st enlargemen enlargemen 00:00: Ho spita t t 00 l Coronary Coronary Disease Active [facility] di artery artery 1-13 st disease disease 00:00: Hospita involving involving 00 [place] coronary coronary artery of artery of [place] heart heart without without angina angina pectoris pectoris Coronary Coronary Disease Active [facility] di artery artery 1-13 st disease disease 00:00: Hospita involving involving 00 [place] coronary coronary artery of artery of [place] heart heart without without angina angina pectoris pectoris SOB SOB Disease Active [facility] (shortness (shortness 1-13 st of breath) of breath) 00:00: Ho spita 00 l Chest pain Chest pain Disease Active M ethodi 1-13 st 00:00: Hospita 00 l Primary Primary Disease Active [facility] hypertensi hypertensi 1-13 st on on 00:00: Hospita 00 l Hyperlipid Hyperlipid Disease Active M ethodi emia emia 03-29 st 00:00: Hospita 00 l Allergies, Adverse Reactions, Alerts This patient has no known allergies or adverse reactions. Family History Family Member Diagnosis Comments Start Date Stop Date Source Natural mother Melanoma [facility] Natural mother Cancer [facility] Natural mother Heart disease [facility] Natural sister Breast cancer [facility] Natural brother Cancer [facility] Natural father Atrial fibrillation [facility] father Hypertension [facility] Natural father Lymphoma [facility] Social History Social Habit Start Date Stop Date Quantity Comments Source Sexual orientation 2021-03-26 Heterosexual [facility] 19:57:43 (finding) Hospital History of tobacco Current smoker [facility] Alcohol intake 2022-06-04 2022-06-04 Current drinker of [facility] 00:00:00 00:00:00 alcohol (finding) Hospita l History of Social 2022-06-04 2022-06-[address] [facility] st function 00:00:00 00:00:00 Hospital Tobacco use and 2021-03-26 2021-03-26 Former smokeless [facility] exposure 00:00:00 00:00:00 tobacco user Hospital Sex Assigned At [birth year] [facility] 00:[facility]:00 Hospital Smoking Status Start Date Stop Date Source Ex-smoker 2021-03-26 00:00:00 2021-03-26 00:00:00 [facility] Medications Ordered Filled Start Stop Current Ordering Indication Dosage Frequency Signature Comments Components Source Medication Medication Date Date Medication? Clinician (SIG) Name Name diosmin 2022- No 630mg QD Take 630 Meth shayy complex 3-21 03-[address] no.1 11:37: 00:00 mouth Hospita (VASCULERA 54 :00 daily. l ORAL) diosmin 2022- No 630mg QD Take 630 Meth shayy complex 3-21 03-[address] no.1 11:37: 00:00 mouth Hospita (VASCULERA 54 :00 daily. l ORAL) diosmin 2022- No 630mg QD Take 630 Meth shayy complex 3-21 03-[address] no.1 11:37: 00:00 mouth Hospita (VASCULERA 54 :00 daily. l ORAL) diosmin 2023-0 2023- No 630mg QD Take 630 Meth shayy complex 3-21 03-[address] no.1 11:37: 00:00 mouth Hospita (VASCULERA 54 :00 daily. l ORAL) omeprazole 2023-0 Yes 20mg QD Take 1 Metho di (PriLOSEC) 3-[address] 20 MG 10:28: (20 mg Hospita capsule 33 total) by l mouth daily. atorvastati 2023-0 Yes 20mg QD Take 1 Meth shayy n (LIPITOR) 3-21 tablet (20 st 20 mg 10:28: mg total) Hospita tablet 33 by mouth l daily. Default OP ins omeprazole 2023-0 Yes 20mg QD Take 1 Metho di (PriLOSEC) 3-[address] 20 MG 10:28: (20 mg Hospita capsule 33 total) by l mouth daily. atorvastati 2023-0 Yes 20mg QD Take 1 Meth shayy n (LIPITOR) 3-21 tablet (20 st 20 mg 10:28: mg total) Hospita tablet 33 by mouth l daily. Default OP ins omeprazole 2023-0 Yes 20mg QD Take 1 Metho di (PriLOSEC) 3-[address] 20 MG 10:28: (20 mg Hospita capsule 33 total) by l mouth daily. atorvastati 2023-0 Yes 20mg QD Take 1 Meth shayy n (LIPITOR) 3-21 tablet (20 st 20 mg 10:28: mg total) Hospita tablet 33 by mouth l daily. Default OP ins omeprazole 2023-0 Yes 20mg QD Take 1 Metho di (PriLOSEC) 3-[address] 20 MG 10:28: (20 mg Hospita capsule 33 total) by l mouth daily. atorvastati 2023-0 Yes 20mg QD Take 1 Meth shayy n (LIPITOR) 3-21 tablet (20 st 20 mg 10:28: mg total) Hospita tablet 33 by mouth l daily. Default OP ins omeprazole 2022-0 Yes 20mg QD Take 20 mg M ethodi (PriLOSEC) 2-[address] 20 MG 12:55: daily. Hospita capsule 10 l diosmin 2022-0 Yes 630mg QD Take 630 Metho di complex 2-[address] no.1 12:55: mouth Hospita (VASCULERA 10 daily. l ORAL) omeprazole 2-0 Yes 20mg QD Take 20 mg M ethodi (PriLOSEC) 2-[address] 20 MG 12:55: daily. Hospita capsule 10 l diosmin 2022-0 Yes 630mg QD Take 630 Metho di complex 2-[address] no.1 12:55: mouth Hospita (VASCULERA 10 daily. l ORAL) omeprazole 2-0 Yes 20mg QD Take 20 mg M ethodi (PriLOSEC) 2-[address] 20 MG 12:55: daily. Hospita capsule 10 l diosmin 2022-0 Yes 630mg QD Take 630 Metho di complex 2-[address] no.1 12:55: mouth Hospita (VASCULERA 10 daily. l ORAL) omeprazole 2-0 Yes 20mg QD Take 20 mg M ethodi (PriLOSEC) 2-[address] 20 MG 12:55: daily. Hospita capsule 10 l diosmin 2-0 Yes 630mg QD Take 630 Metho di complex 2-[address] no.1 12:55: mouth Hospita (VASCULERA 10 daily. l ORAL) atorvastati 2022- No 40mg QD Take 1 Met [facility] n (LIPITOR) 03-27 tablet (40 s t 40 mg 00:00: 05:59 mg total) Hospit a tablet 00 :00 by mouth l daily. atorvastati 2022- No 40mg QD Take 1 Met [facility] n (LIPITOR) 03-27 tablet (40 s t 40 mg 00:00: 05:59 mg total) Hospit a tablet 00 :00 by mouth l daily. atorvastati 2021-2022- No 40mg QD Take 1 Met [facility]odi n (LIPITOR) 03-27 tablet (40 s t 40 mg 00:00: 05:59 mg total) Hospit a tablet 00 :00 by mouth l daily. atorvastati 2021-2022- No 40mg QD Take 1 Met [facility]odi n (LIPITOR) 03-27 tablet (40 s t 40 mg 00:00: 05:59 mg total) Hospit a tablet 00 :00 by mouth l daily. atorvastati 2022- No 40mg QD Take 1 Met [facility]odi n (LIPITOR) 03-27 tablet (40 s t 40 mg 00:00: 05:59 mg total) Hospit a tablet 00 :00 by mouth l daily. atorvastati No 40mg QD Take 1 Met [facility]odi n (LIPITOR) 03-27 tablet (40 s t 40 mg 00:00: 05:59 mg total) Hospit a tablet 00 :00 by mouth l daily. atorvastati No 40mg QD Take 1 Met [facility]odi n (LIPITOR) 03-27 tablet (40 s t 40 mg 00:00: 05:59 mg total) Hospit a tablet 00 :00 by mouth l daily. atorvastati No 40mg QD Take 1 Met [facility]odi n (LIPITOR) 03-27 tablet (40 s t 40 mg 00:00: 05:59 mg total) Hospit a tablet 00 :00 by mouth l daily. amLODIPine 2020-03 Yes 10mg QD 10 mg Method i (NORVASC) 2-[address] 10 mg 00:00: Hospita tablet 00 l amLODIPine 2020-03 Yes 10mg QD 10 mg Method i (NORVASC) 2-[address] 10 mg 00:00: Hospita tablet 00 l amLODIPine 2020-03 Yes 10mg QD 10 mg Method i (NORVASC) 2-[address] 10 mg 00:00: Hospita tablet 00 l amLODIPine 2020-03 Yes 10mg QD 1 tablet Met hodi (NORVASC) 2-13 ([address] 10 mg 00:00: total) Hospita tablet 00 daily. l amLODIPine 2020-03 Yes 10mg QD 1 tablet Met hodi (NORVASC) 2-13 ([address] 10 mg 00:00: total) Hospita tablet 00 daily. l amLODIPine 2020-03 Yes 10mg QD 1 tablet Met hodi (NORVASC) 2-13 ([address] 10 mg 00:00: total) Hospita tablet 00 daily. l amLODIPine 2020-03 Yes 10mg QD 10 mg Method i (NORVASC) 2-[address] 10 mg 00:00: Hospita tablet 00 l amLODIPine 2020-03 Yes 10mg QD 1 tablet Met hodi (NORVASC) 2-13 ([address] 10 mg 00:00: total) Hospita tablet 00 daily. l famotidine 2020-03 Yes 20mg QD 20 mg Method i (PEPCID) 20 03-[address] MG tablet 00:00: Hospita 00 l famotidine 2020-03 Yes 20mg QD 20 mg [facility] (PEPCID) 20 03-[address] MG tablet 00:00: Hospita 00 l famotidine 2020-03 Yes 20mg QD 20 mg Method i (PEPCID) 20 03-[address] MG tablet 00:00: Hospita 00 l famotidine 2020-03 Yes 20mg QD 1 tablet Met [facility]odi (PEPCID) 20 03-18 ([address] MG tablet 00:00: total) Hospit a 00 daily. l famotidine 2020-03 Yes 20mg QD 1 tablet [facility] (PEPCID) 20 03-18 ([address] MG tablet 00:00: total) Hospit a 00 daily. l famotidine 2020-03 Yes 20mg QD 1 tablet Met [facility]odi (PEPCID) 20 03-18 ([address] MG tablet 00:00: total) Hospit a 00 daily. l famotidine 2020-03 Yes 20mg QD 20 mg Method i (PEPCID) 20 03-[address] MG tablet 00:00: Hospita 00 l famotidine 2020-03 Yes 20mg QD 1 tablet Met hodi (PEPCID) 20 03-18 ([address] MG tablet 00:00: total) Hospit a 00 daily. l metoprolol 2020-03 Yes 50mg QD 50 mg Method i succinate 0-[address] XL 00:00: Hospita (TOPROL-XL) 00 l 50 mg 24 hr tablet metoprolol 2020-03 Yes 50mg QD 50 mg Method i succinate 0-[address] XL 00:00: Hospita (TOPROL-XL) 00 l 50 mg 24 hr tablet metoprolol 2020-03 Yes 50mg QD 50 mg Method i succinate 0-[address] XL 00:00: Hospita (TOPROL-XL) 00 l 50 mg 24 hr tablet metoprolol 2020-03 Yes 50mg QD 1 tablet Met [facility]odi succinate 0-28 ([address] XL 00:00: total) Hospita (TOPROL-XL) 00 daily. l 50 mg 24 hr tablet metoprolol 2020-03 Yes 50mg QD 1 tablet Met [facility] succinate 0-28 ([address] XL 00:00: total) Hospita (TOPROL-XL) 00 daily. l 50 mg 24 hr tablet metoprolol 2020-03 Yes 50mg QD 1 tablet Met [facility] succinate 0-28 ([address] XL 00:00: total) Hospita (TOPROL-XL) 00 daily. l 50 mg 24 hr tablet metoprolol 2020-03 Yes 50mg QD 50 mg Method i succinate 0-[address] XL 00:00: Hospita (TOPROL-XL) 00 l 50 mg 24 hr tablet metoprolol 2020-03 Yes 50mg QD 1 tablet Met [facility] succinate 0-28 ([address] XL 00:00: total) Hospita (TOPROL-XL) 00 daily. l 50 mg 24 hr tablet atorvastati 2020-03- No 20mg QD 20 mg Meth shayy n (LIPITOR) 0-28 - daily. st 20 mg 00:00: 00:00 Hospita tablet 00 :00 l atorvastati 2020-03- No 20mg QD 20 mg Meth shayy n (LIPITOR) 0-28 -[address] 20 mg 00:00: 00:00 Hospita tablet 00 :00 l Immunizations Ordered Filled Immunization Date Status Comments [facility] e Immunization Name Name [facility]2021-01-10 Completed Method[facility] t MRNA VACCINATION 00:00:00 [facility]2021-01-10 Completed [facility] t MRNA VACCINATION 00:00:00 [facility]2021-01-10 Completed [facility] t MRNA VACCINATION 00:00:00 [facility]2021-01-10 Completed [facility] Com[facility] VACC[facility]ATION 00:00:00 [place] [address] 2020-05-21 Completed [facility] t MRNA VACCINATION 00:00:00 [place] [address] 2020-05-21 Completed [facility] t MRNA VACCINATION 00:00:00 [place] [address] 2020-05-21 Completed [facility] t MRNA VACCINATION 00:00:00 [place] [address] 2020-04-23 Completed [facility] t MRNA VACCINATION 00:00:00 [place] [address] 2020-04-23 Completed [facility] t MRNA VACCINATION 00:00:00 [place] [address] 2020-04-23 Completed [facility] t MRNA VACCINATION 00:00:00 [place] [address] 2020-04-23 Completed [facility] t MRNA VACCINATION 00:00:00 [place] [address] Unknown Completed [facility] MRNA VACCINATION [place] [address] Unknown Completed [facility] t MRNA VACCINATION [place] [address] Unknown Completed [facility] t MRNA VACCINATION [place] [address] Unknown Completed [facility] MRNA VACCINATION [place] [address] Unknown Completed Method[facility] t MRNA VACCINATION [place] [address] Unknown Completed [facility] t MRNA VACCINATION [place] [address] Unknown Completed [facility] t MRNA VACCINATION [place] [address] Unknown Completed [facility] t MRNA VACCINATION [place] [address] Unknown Completed [facility] t MRNA VACCINATION [place] [address] Unknown Completed [facility] t MRNA VACCINATION [place] [address] Unknown Completed [facility] MRNA VACCINATION [place] [address] Unknown Completed Method[facility] t MRNA VACCINATION [facility] Vital Signs Vital Name Observation Time Observation Value Comments Source Systolic blood 2022-06-04 15:24:00 145 mm[Hg] [facility] pressure Diastolic blood 2022-06-04 15:24:00 79 mm[Hg] [facility] pressure Heart rate 2022-06-04 15:24:00 52 /min [facility] Body height 2022-06-04 15:24:00 182.9 cm [facility] Body weight 2022-06-04 15:24:00 129.729 kg [facility] BMI 2022-06-04 15:24:00 38.79 kg/m2 [facility] Oxygen saturation in 2022-06-04 15:24:00 95 /min [facility] Arterial blood by Pulse oximetry Systolic blood 2021-04-17 18:54:00 137 mm[Hg] [facility] pressure Diastolic blood 2021-04-17 18:54:00 83 mm[Hg] [facility] pressure Heart rate 2021-04-17 18:54:00 54 /min [facility] Body height 2021-04-17 18:54:00 182.9 cm [facility] Body weight 2021-04-17 18:54:00 134.718 kg [facility] BMI 2021-04-17 18:54:00 40.28 kg/m2 [facility] Respiratory rate 2021-04-04 13:37:00 18 /min [facility] Oxygen saturation in 2021-04-04 13:37:00 99 /min [facility] Arterial blood by Pulse oximetry Procedures Procedure Date / Time Performed Performing Clinician Sour e ECG 12-LEAD 2022-06-04 14:33:10 Alex Foote spital TTE COMPLETE, WO 2021-04-04 16:00:00 Alex Foote H ospital CONTRAST, W DOPPLER ([id number]) CV CTA CORONARY 2021-04-04 13:48:51 Alex Foote spital ARTERIES W CONTRAST CT CARDIAC OVERREAD 2021-04-04 13:41:40 Alex Foote [facility] POC CREATININE 2021-04-04 13:09:00 Alex Foote spital ESTIMATED GFR 2021-04-04 13:09:00 Alex Foote Ho spital ECG 12-LEAD 2021-03-26 21:59:56 Alex Foote spital Plan of Care Planned Activity Planned Date Details Comments Source Future Scheduled 2023-01-09 Screening for [facility] Test 20:55:13 malignant neoplasm of colon (procedure) [code = 895100517] Future Scheduled 2023-01-09 Screening for [facility] Test 20:55:13 malignant neoplasm of colon (procedure) [code = 952990435] Future Scheduled 2023-01-09 Screening for [facility] Test 20:55:13 malignant neoplasm of colon (procedure) [code = 255169739] Future Scheduled 2023-01-09 65+ [facility]OCOCCAL [facility] Test 20:55:13 VACCINE (1 - PCV) [code = 65+ PNEUMOCOCCAL VACCINE (1 - PCV)] Future Scheduled 2023-01-09 [facility] Test 20:55:13 (procedure) [code = 091910751] Future Scheduled 2023-01-09 [facility] Test 20:55:13 malignant neoplasm of colon (procedure) [code = 095235391] Future Scheduled 2023-01-09 [facility] Test 20:55:13 malignant neoplasm of colon (procedure) [code = 816785953] Future Scheduled 2023-01-09 SHINGLES VACCINES (2 [facility] Test 20:55:13 of 2) [code = SHINGLES VACCINES (2 of 2)] Future Scheduled 2023-01-09 COVID-19 VACCINE (4 - [facility] Test 20:55:13 season) [code = COVID-19 VACCINE (4 - season)] Future Scheduled 2023-01-09 INFLUENZA VACCINE (#1) [facility] Test 20:55:13 [code = INFLUENZA VACCINE (#1)] Future Scheduled 2023-01-09 [facility] Test 20:55:13 malignant neoplasm of colon (procedure) [code = 796320737] Future Scheduled 2023-01-09 [facility] Test 20:55:13 malignant neoplasm of colon (procedure) [code = 589312248] Future Scheduled 2023-01-09 [facility] Test 20:55:13 malignant neoplasm of colon (procedure) [code = 299775799] Future Scheduled 2023-01-09 65+ [facility]OCOCCAL [facility] Test 20:55:13 VACCINE (1 - PCV) [code = 65+ PNEUMOCOCCAL VACCINE (1 - PCV)] Future Scheduled 2023-01-09 [facility] C screening [facility] Test 20:55:13 (procedure) [code = 011146747] Future Scheduled 2023-01-09 [facility]ening [facility] Test 20:55:13 malignant neoplasm of colon (procedure) [code = 317415312] Future Scheduled 2023-01-09 [facility] Test 20:55:13 malignant neoplasm of colon (procedure) [code = 152249372] Future Scheduled 2023-01-09 SHINGLES VACCINES (2 [facility] Test 20:55:13 of 2) [code = SHINGLES VACCINES (2 of 2)] Future Scheduled 2023-01-09 COVID-19 VACCINE (4 - Me [facility] Test 20:55:13 ) [code = COVID-19 VACCINE ( season)] Future Scheduled 2023-01-09 [facility] 20:55:13 [code = INFLUENZA VACCINE (#1)] Future Scheduled 2023-01-09 Screening for [facility] Test 20:55:13 malignant neoplasm of colon (procedure) [code = 162013568] Future Scheduled 2023-01-09 Screening for [facility] Test 20:55:13 malignant neoplasm of colon (procedure) [code = 115233085] Future Scheduled 2023-01-09 Screening for [facility] Test 20:55:13 malignant neoplasm of colon (procedure) [code = 154980472] Future Scheduled 2023-01-09 65+ [facility] 20:55:13 VACCINE (1 - PCV) [code = 65+ PNEUMOCOCCAL VACCINE (1 - PCV)] Future Scheduled 2023-01-09 Hepatitis C screening [facility] Hospital Test 20:55:13 (procedure) [code = 200008412] Future Scheduled 2023-01-09 Screening for [facility] Test 20:55:13 malignant neoplasm of colon (procedure) [code = 501501117] Future Scheduled 2023-01-09 Screening for [facility] Test 20:55:13 malignant neoplasm of colon (procedure) [code = 025980910] Future Scheduled 2023-01-09 SHINGLES VACCINES (2 [facility] Test 20:55:13 of 2) [code = SHINGLES VACCINES (2 of 2)] Future Scheduled 2023-01-09 COVID-19 VACCINE (4 - [facility] Test 20:55:13 ) [code = COVID-19 VACCINE ( season)] Future Scheduled 2023-01-09 INFLUENZA VACCINE (#1) M [facility] Hospital Test 20:55:13 [code = INFLUENZA VACCINE (#1)] Future Scheduled 2023-01-09 Screening for [facility] Test 20:55:13 malignant neoplasm of colon (procedure) [code = 278307885] Future Scheduled 2023-01-09 Screening for [facility] Test 20:55:13 malignant neoplasm of colon (procedure) [code = 838422191] Future Scheduled 2023-01-09 Screening for [facility] Test 20:55:13 malignant neoplasm of colon (procedure) [code = 549509805] Future Scheduled 2023-01-09 65+ PNEUMOCOCCAL [facility] Test 20:55:13 VACCINE (1 - PCV) [code = 65+ PNEUMOCOCCAL VACCINE (1 - PCV)] Future Scheduled 2023-01-09 Hepatitis C screening [facility] Test 20:55:13 (procedure) [code = 532028939] Future Scheduled 2023-01-09 Screening for [facility] Test 20:55:13 malignant neoplasm of colon (procedure) [code = 667825788] Future Scheduled 2023-01-09 Screening for [facility] Test 20:55:13 malignant neoplasm of colon (procedure) [code = 108233741] Future Scheduled 2023-01-09 SHINGLES VACCINES (2 Met [facility] Test 20:55:13 of 2) [code = SHINGLES VACCINES (2 of 2)] Future Scheduled 2023-01-09 COVID-19 VACCINE (4 - [facility] Test 20:55:13 season) [code = COVID-19 VACCINE (4 - season)] Future Scheduled 2023-01-09 INFLUENZA VACCINE (#1) [facility] Hospital Test 20:55:13 [code = INFLUENZA VACCINE (#1)] Future Scheduled 2022-03-31 65+ PNEUMOCOCCAL [facility] Test 14:15:50 VACCINE (1 - PCV) [code = 65+ PNEUMOCOCCAL VACCINE (1 - PCV)] Future Scheduled 2022-03-31 Hepatitis C screening [facility] Hospital Test 14:15:50 (procedure) [code = 227756726] Future Scheduled 2022-03-31 COLONOSCOPY SCREENING [facility] Test 14:15:50 [code = COLONOSCOPY SCREENING] Future Scheduled 2022-03-31 SHINGLES VACCINES (2 Met [facility] Hospital Test 14:15:50 of 2) [code = SHINGLES VACCINES (2 of 2)] Future Scheduled 2022-03-31 COVID-19 VACCINE (4 - Me [facility] Hospital Test 14:15:50 Booster for Modern[employer] series) [code = COVID-19 VACCINE (4 - Booster for Modern[employer] series)] Future Scheduled 2022-03-31 INFLUENZA VACCINE [facility] Test 14:15:50 [code = INFLUENZA VACCINE] Future Scheduled 2022-03-31 65+ PNEUMOCOCCAL [facility] Test 14:15:50 VACCINE (1 - PCV) [code = 65+ PNEUMOCOCCAL VACCINE (1 - PCV)] Future Scheduled 2022-03-31 Hepatitis C screening [facility] Hospital Test 14:15:50 (procedure) [code = 179372484] Future Scheduled 2022-03-31 COLONOSCOPY SCREENING [facility] Hospital Test 14:15:50 [code = COLONOSCOPY SCREENING] Future Scheduled 2022-03-31 SHINGLES VACCINES (2 Met [facility] Test 14:15:50 of 2) [code = SHINGLES VACCINES (2 of 2)] Future Scheduled 2022-03-31 COVID-19 VACCINE (4 - [facility] Hospital Test 14:15:50 Booster for Modern[employer] series) [code = COVID-19 VACCINE (4 - Booster for Moderna series)] Future Scheduled 2022-03-31 INFLUENZA VACCINE [facility] Hospital Test 14:15:50 [code = INFLUENZA VACCINE] Future Scheduled 2022-03-01 65+ [facility]OCCAL [facility] Test 09:34:12 VACCINE (1 - PCV) [code = 65+ PNEUMOCOCCAL VACCINE (1 - PCV)] Future Scheduled 2022-03-01 Hepatitis C screening [facility] Hospital Test 09:34:12 (procedure) [code = 859805715] Future Scheduled 2022-03-01 COLONOSCOPY SCREENING [facility] Hospital Test 09:34:12 [code = COLONOSCOPY SCREENING] Future Scheduled 2022-03-01 SHINGLES VACCINES (2 Met [facility] Hospital Test 09:34:12 of 2) [code = SHINGLES VACCINES (2 of 2)] Future Scheduled 2022-03-01 COVID-19 VACCINE (4 - [facility] Hospital Test 09:34:12 Booster for Modern[employer] series) [code = COVID-19 VACCINE (4 - Booster for Moderna series)] Future Scheduled 2022-03-01 INFLUENZA VACCINE [facility] Hospital Test 09:34:12 [code = INFLUENZA VACCINE] Future Scheduled 2022-03-01 65+ PNEUMOCOCCAL [facility] Test 09:34:12 VACCINE (1 - PCV) [code = 65+ PNEUMOCOCCAL VACCINE (1 - PCV)] Future Scheduled 2022-03-01 Hepatitis C screening [facility] Test 09:34:12 (procedure) [code = 164164065] Future Scheduled 2022-03-01 COLONOSCOPY SCREENING [facility] Test 09:34:12 [code = COLONOSCOPY SCREENING] Future Scheduled 2022-03-01 SHINGLES VACCINES (2 Met [facility] Hospital Test 09:34:12 of 2) [code = SHINGLES VACCINES (2 of 2)] Future Scheduled 2022-03-01 COVID-19 VACCINE (4 - Me [facility] Test 09:34:12 Booster for Modern[employer] series) [code = COVID-19 VACCINE (4 - Booster for Moderna series)] Future Scheduled 2022-03-01 INFLUENZA VACCINE [facility] Test 09:34:12 [code = INFLUENZA VACCINE] Encounters Start End Encounter Admission Attending Care Care Encounter Source Date/Time Date/Time Type Type Clinicians Facility Department ID 2022-06-04 2022-06-04 Office Delphine, 1.2.840.1 [id number] [facility] 10:10:00 14:15:01 Visit [facility] [id number] 3.430.2.7 Hospit a .[id number] l .8 2022-06-04 2022-06-04 Office Delphine, 1.2.840.1 [id number] [facility] 10:10:00 14:15:01 Visit [facility] [id number] 3.430.2.7 Hospit a .3.291311 l .8 2022-06-04 2022-06-04 Travel 1.2.840.1 [id number] [facility] 00:00:00 00:00:[id number] 3.430.2.7 0.2.7.3.698 Ho spita .3.205753 084.8 l .8 2022-06-04 2022-06-04 Travel 1.2.840.1 [id number] [facility] 00:00:00 00:00:[id number] 3.430.2.7 0.2.7.3.698 Ho spita .3.182716 084.8 l .8 2021-04-17 2021-04-17 Office Foote, 1.2.840.1 [id number] Method[facility] 13:00:00 16:33:23 Visit [facility] [id number] 3.430.2.7 Hospit a .3.612260 l .8 2021-04-17 2021-04-17 Travel 1.2.840.1 1.2.974.222 [id number] Methodi 00:00:00 00:00:[address] 3.430.2.7 0.2.7.3.698 Ho spita .3.215577 084.8 l .8 2021-04-06 2021-04-06 [facility], 1.2.840.1 [id number] Methodi 00:00:00 00:00:00 [place] [address] 3.430.2.7 Hospit a .3.199295 l .8 2021-04-04 2021-04-04 [facility], 1.2.840.1 [id number] Methodi 07:41:40 23:59:00 Encounter [place] [address].1.[address] 3.430.2.7 Hospit a .3.759987 l .8 2021-04-04 2021-04-04 Travel 1.2.840.1 1.2.500.768 [id number] Methodi 00:00:00 00:00:[address] 3.430.2.7 0.2.7.3.698 Ho spita .3.242295 084.8 l .8 2021-04-04 2021-04-04 [facility] [id number] [address] 00:00:00 00:00:[address] ALEX [address] 2021-04-04 2021-04-04 Outpatient [facility] [id number] [address] 00:00:00 00:00:[address] ALEX [address] 2021-04-02 2021-04-02 Travel 1.2.840.1 1.2.789.746 [id number] Methodi 00:00:00 00:00:[address] 3.430.2.7 0.2.7.3.698 Ho spita .3.864155 084.8 l .8 2021-03-27 2021-03-27 Orders Lisa, 1.2.840.1 [id number] Methodi 00:00:00 00:00:00 Only Theresa [address]94.1.[address] 3.430.2.7 Hospit a .3.498580 l .8 2021-03-26 2021-03-26 Office Foote, 1.2.840.1 [id number] Methodi 15:00:00 15:15:00 Visit [place] [address].1.[address] 3.430.2.7 Hospit a .3.331876 l .8 2021-03-26 2021-03-26 Travel 1.2.840.1 1.2.399.361 [id number] Methodi 00:00:00 00:00:[address] 3.430.2.7 0.2.7.3.698 Ho spita .3.275957 084.8 l .8 2021-02-27 2021-02-27 Outpatient [facility] [id number] [address] 00:00:00 00:00:00 TAMARA [address] 2021-02-27 2021-02-27 [facility] [id number] [address] 00:00:00 00:00:00 TAMARA [address] Results Test Description Test Time Test Comments Results Result Comments Source ECG 12 lead 2022-06-05 00:44:19 Test Item Value Reference Range Interpretation Comme nts Ventricular rate (test code = 253) 48 Atrial rate (test code = 255) 48 MN interval (test code = 266) 172 QRSD interval (test code = 260) 110 QT interval (test code = 264) 444 QTC interval (test code = 265) 396 P axis 1 (test code = 267) 64 QRS axis 1 (test code = 268) 75 T wave axis (test code = 270) 37 EKG impression (test code = 273) Sinus bradycardia-Otherwise normal ECG-In automated comparison with ECG of 26-MAR-2021 15:59,-premature atrial complexes are no longer present- [address]2023-03-22 00:44:19 Test Item Value Reference Range Interpretation Comments Ventricular rate (test 48 code = 253) Atrial rate (test code 48 = 255) MN interval (test code 172 = 266) QRSD interval (test 110 code = 260) QT interval (test code 444 = 264) QTC interval (test code 396 = 265) P axis 1 (test code = 64 267) QRS axis 1 (test code = 75 268) T wave axis (test code 37 = 270) EKG impression (test Sinus code = 273) bradycardia-Otherwise normal ECG-In automated comparison with ECG of 26-MAR-2021 15:59,-premature atrial complexes are no longer present- [address]2023-03-22 00:44:19 Test Item Value Reference Range Interpretation Comments Ventricular rate (test 48 code = 253) Atrial rate (test code 48 = 255) MN interval (test code 172 = 266) QRSD interval (test 110 code = 260) QT interval (test code 444 = 264) QTC interval (test code 396 = 265) P axis 1 (test code = 64 267) QRS axis 1 (test code = 75 268) T wave axis (test code 37 = 270) EKG impression (test Sinus code = 273) bradycardia-Otherwise normal ECG-In automated comparison with ECG of 26-MAR-2021 15:59,-premature atrial complexes are no longer present- [address]2023-03-22 00:44:19 Test Item Value Reference Range Interpretation Comments Ventricular rate (test 48 code = 253) Atrial rate (test code 48 = 255) MN interval (test code 172 = 266) QRSD interval (test 110 code = 260) QT interval (test code 444 = 264) QTC interval (test code 396 = 265) P axis 1 (test code = 64 267) QRS axis 1 (test code = 75 268) T wave axis (test code 37 = 270) EKG impression (test Sinus code = 273) bradycardia-Otherwise normal ECG-In automated comparison with ECG of 26-MAR-2021 15:59,-premature atrial complexes are no longer present- [address]2022 13:02:04 Test Item Value Reference Range Interpretation Comments Ventricular rate (test code = 253) Atrial rate (test code = 255) MN interval (test code = 266) QRSD interval (test code = 260) QT interval (test code = 264) QTC interval (test code = 265) P axis 1 (test code = 267) QRS axis 1 (test code = 268) T wave axis (test code = 270) EKG impression (test Poor data code = 273) quality-Sinus bradycardia with premature atrial complexes-Rightward axis-Borderline ECG-No previous ECGs available-Electronical ly Signed By Graham Khan MD ([id number]) on 03/27/2021 7:02:[address] AM [address]2022 13:02:04 Test Item Value Reference Range Interpretation Comments Ventricular rate (test code = 253) Atrial rate (test code = 255) MN interval (test code = 266) QRSD interval (test code = 260) QT interval (test code = 264) QTC interval (test code = 265) P axis 1 (test code = 267) QRS axis 1 (test code = 268) T wave axis (test code = 270) EKG impression (test Poor data code = 273) quality-Sinus bradycardia with premature atrial complexes-Rightward axis-Borderline ECG-No previous ECGs available-Electronical ly Signed By Erin BRO, Graham ([id number]) on 03/27/2021 7:02:02 AM [facility]
[2023-02-16 10:18] LABS: Absolute Lymphocytes (CBC) 1.6 K/uL (0.7-4.9); Hematocrit 41.7 % (39.6-49.0); Lymphocytes % 22.5 % (15.3-44.8); MCV 88.2 fL (80-100); MPV 7.2 fL (7.6-11.3); Platelets 205 thou/uL (152-406); RBC Red Blood Cell Count 4.73 M/uL (4.33-5.43)
[2023-02-16 10:32] LABS: Albumin 3.3 g/dL (3.4-5.0); Bilirubin Total 0.5 mg/dL (0.2-1.0); Potassium 3.9 mEq/L (3.5-5.1)
[2023-02-16] MEDS ORDERED: NA CHLORIDE 0.9% 1,000 ML ONE (10:37)
[2023-02-16] MEDS ORDERED: ONDANSETRON 4 MG/2 ML VIAL ONE (10:37)
[2023-02-16] MEDS ORDERED: MORPHINE 4 MG/ML SYR ONE (10:37)
[2023-02-16 10:50] LABS: Specific Gravity 1.023 (1.005-1.030); Urine Bilirubin NEGATIVE (Negative); Urine Blood Negative (Negative); Urine Clarity Clear (Clear); Urine Color Dark-Yellow (Yellow); Urine Glucose NEGATIVE (Negative); Urine Protein NEGATIVE (Negative); Urine Urobilinogen Normal (Normal); Urine pH 6.5 (5.0-7.0)
--- NOTE | 2023-02-16 10:50 | RAD REPORT ---
EXAM DESCRIPTION: CT - Stone Protocol - 02/16/2023 10:16 am CLINICAL HISTORY: Abdominal pain. COMPARISON: 2017 TECHNIQUE: Computed axial tomography of the abdomen pelvis was obtained without oral or IV contrast. Lack of IV and oral contrast limits evaluation of solid organs, appendix, bowel, and vessels. Hawkins l reformatted images were obtained and reviewed. All CT scans are performed using dose optimization technique as appropriate and may include automated exposure control or mA/KV adjustment according to patient size. FINDINGS: Small bilateral renal calculi. Mild right hydronephrosis. 5 millimeter calculus right UVJ. Cholecystectomy The liver, spleen, pancreas and adrenals appear grossly normal There is no evidence of diverticulitis. 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 Follow-up imaging recommended in 3 years Normal appendix. Small umbilical hernia IMPRESSION: 5 millimeter calculus right UVJ resulting in mild right hydronephrosis
--- NOTE | 2023-02-16 10:56 | EDPHYS ---
Physician Documentation [facility] Name: Luis Miguel Gomes Age: 68 yrs Sex: Male : 1955 Arrival Date: 02/16/2023 Time: 09:52 Bed 18 Private MD: Mayank Johnson V ED Physician Marcelo Barker HPI: 02/16 09:55 This 68 yrs old Male presents to ER via Unassigned with complaints of Possible Kidney jh7 Stone. 09:55 Onset: The symptoms/episode began/occurred 5 day(s) ago. Associated signs and symptoms: jh7 Pertinent negatives: abdominal pain, chest pain, dysuria, fever, vomiting. 68-year-old male presents to the ER for a possible kidney stone. He [place] that [place] the ship he developed right flank pain and hematuria. The ship is able to perform lab work, but they do not have imaging. He was put on Flomax and Levaquin on Friday and advised to follow-up in the ER. He currently complains of right flank pain but denies fever or difficulty with urination. He has a history of frequent kidney stones. PCP is Dr. Johnson.. Historical: - Allergies: 10:11 No Known Allergies; hb - PMHx: 10:11 GERD; Hypertension; hb - Immunization history:: Adult Immunizations up to date. - Social history:: Smoking status: Patient denies any tobacco usage or history of. ROS: 09:55 Constitutional: Negative for fever, chills, and weight loss, Eyes: Negative for injury, jh7 pain, redness, and discharge, Neck: Negative for injury, pain, and swelling, Cardiovascular: Negative for chest pain, palpitations, and edema, Respiratory: Negative for shortness of breath, cough, wheezing, and pleuritic chest pain, Abdomen/GI: Negative for abdominal pain, nausea, vomiting, diarrhea, and constipation, MS/Extremity: Negative for injury and deformity, Skin: Negative for injury, rash, and discoloration, Neuro: Negative for headache, weakness, numbness, tingling, and seizure, 09:55 : Positive for flank pain, hematuria, Negative for urinary symptoms, burning with urination, 09:55 All other systems are negative, Exam: :55 Constitutional: This is a well developed, well nourished patient who is awake, alert, jh7 and in no acute distress. Head/Face: Normocephalic, atraumatic. Eyes: Pupils equal round and reactive to light, extra-ocular motions intact. Lids and lashes normal. Conjunctiva and sclera are non-icteric and not injected. Cornea within normal limits. Periorbital areas with no swelling, redness, or edema. Neck: Trachea midline, no thyromegaly or masses palpated, and no cervical lymphadenopathy. Supple, full range of motion without nuchal rigidity, or vertebral point tenderness. No Meningismus. Cardiovascular: Regular rate and rhythm with a normal S1 and S2. No gallops, murmurs, or rubs. Normal PMI, no JVD. No pulse deficits. Respiratory: Lungs have equal breath sounds bilaterally, clear to auscultation and percussion. No rales, rhonchi or wheezes noted. No increased work of breathing, no retractions or nasal flaring. Abdomen/GI: Soft, non-tender, with normal bowel sounds. No distension or tympany. No guarding or rebound. No evidence of tenderness throughout. Skin: Warm, dry with normal turgor. Normal color with no rashes, no lesions, and no evidence of cellulitis. MS/ Extremity: Pulses equal, no cyanosis. Neurovascular intact. Full, normal range of motion. Neuro: Awake and alert, GCS 15, oriented to person, place, time, and situation. Motor strength 5/5 in all extremities. Sensory grossly intact. Normal gait. 09:55 : CVA tenderness, on the right, Vital Signs: 09:56 BP 162 / 89; Pulse 54; Resp 16; Temp 98.3; Pulse Ox 98% on R/A; Weight 127.01 kg; hb Height 6 ft. 2 in. ; Pain 4/10; 10:30 BP 148 / 87; Pulse 56; Resp 17; Pulse Ox 100% on R/A; me1 11:00 BP 149 / 92; Pulse 58; Resp 16; Pulse Ox 97% on R/A; me1 11:40 BP 141 / 87; Pulse 59; Resp 16; Pulse Ox 96% on R/A; me1 09:56 Body Mass Index 35.95 (127.01 kg, 187.96 cm) hb 09:56 Pain Scale: Adult hb MDM: 09:55 Patient medically screened. [facility] 10:53 Differential diagnosis: Nephrolithiasis, hydronephrosis, pyelonephritis, UTI, lower 7 back strain. Data reviewed: vital signs, nurses notes, lab test result(s), radiologic studies, CT scan. I considered the following discharge prescriptions or medication management in the emergency department Medications were administered in the Emergency Department. See MAR. Care significantly affected by the following chronic conditions: Hypertension. Counseling: I had a detailed discussion with the patient and/or guardian regarding the historical points, exam findings, and any diagnostic results supporting the discharge/admit diagnosis, the need for outpatient follow up, a urologist, to return to the emergency department if symptoms worsen or persist or if there are any questions or concerns that arise at home. Response to treatment: the patient's symptoms have markedly improved after treatment. ED course: Patient is already on Levaquin and Flomax. Will prescribe Toradol and Tylenol #3 for pain management. The patient's symptoms improved significantly after pain medication administration in the ER. Advised the patient to follow-up with Dr. Cuenca, urology. If he develops any new concerning symptoms, he may return to the ER for further eval.. 02/16 10:01 Order name: CBC with Diff; Complete Time: 10:49 [facility] 02/16 10:01 Order name: CMP; Complete Time: 10:49 [facility] 02/16 10:01 Order name: Lipase; Complete Time: 10:49 [facility] 02/16 10:01 Order name: Urinalysis w/ reflexes; Complete Time: 10:52 [facility] 02/16 10:01 Order name: CT Stone Protocol; Complete Time: 10:52 [facility] 02/16 10:01 Order name: IV Saline Lock; Complete Time: 10:40 [facility] 02/16 10:01 Order name: Labs collected and sent; Complete Time: 10:40 [facility] Administered Medications: 10:39 Drug: NS 0.9% IV 1000 ml IV at 1 bolus Per protocol; 1000 mL bolus Route: IV; Rate: 1 me1 bolus; Site: right antecubital; 11:52 Follow up: IV Status: Completed infusion me1 10:39 Drug: Ondansetron IVP 4 mg IVP once; over 2 minutes Route: IVP; Site: right antecubital;me1 11:21 Follow up: Response: No adverse reaction me1 10:40 Drug: morphine IVP or IV 4 mg IVP once over 4 mins Route: IVP; Infused Over: 4 mins; me1 Site: right antecubital; 11:21 Follow up: Response: No adverse reaction; Pain is decreased me1 Disposition Summary: 02/16/23 10:56 Discharge Ordered Notes: Location: Home [facility] Problem: an ongoing problem [facility] Symptoms: are unchanged [facility] Condition: Stable [facility] Diagnosis - Unspecified hydronephrosis [facility] - Nephrolithiasis [facility] Followup: [facility] - With: Cristian Cuenca MD - When: 2 - 3 days - Reason: Recheck today's complaints Followup: [facility] - With: Cristian Cuenca MD - When: Tomorrow - Reason: Further diagnostic work-up, Recheck today's complaints Discharge Instructions: - Discharge Summary Sheet [facility] - Kidney Stones [facility] - Hydronephrosis [facility] - Dietary Guidelines to Help Prevent Kidney Stones [facility] - Laser Therapy for Kidney Stones [facility] Forms: - Medication Reconciliation Form [facility] - Thank You Letter [facility] - Prescription Opioid Use [facility] - Patient Portal Instructions [facility] - Leadership Thank You Letter [facility] Prescriptions: - acetaminophen-codeine 300-15 mg Oral tablet - take 1 tablet ORAL route every 6 hours As needed; 20 tablet; Refills: 0, [facility] Product Selection Permitted - ketorolac 10 mg Oral tablet - take 1 tablet ORAL route every 6 hours for 3 days; 12 tablet; Refills: 0, [facility] Product Selection Permitted Signatures: Dispatcher aFisalst Marlene Rai RN RN Johana [place]r [place] [id number] Kami Elena RN RN pa1
--- NOTE | 2023-02-16 10:56 | ER ---
Nurse's Notes [facility] Name: Luis Miguel Gomes Age: 68 yrs Sex: Male : 1955 Arrival Date: 02/16/2023 Time: 09:52 Bed 18 Private MD: Mayank Johnson V Diagnosis: Unspecified hydronephrosis;Nephrolithiasis Presentation: 02/16 09:56 Chief complaint: Right flank pain, nausea, and blood in urine x 5 days. On Levaquin and hb Flomax since 02/11. Hx of kidney stones. Coronavirus screen: At this time, the client does not indicate any symptoms associated with coronavirus-19. Ebola Screen: No symptoms or risks identified at this time. Initial Sepsis Screen: Does the patient meet any 2 criteria? No. Patient's initial sepsis screen is negative. Does the patient have a suspected source of infection? No. Patient's initial sepsis screen is negative. Risk Assessment: Do you want to hurt yourself or someone else? Patient reports no desire to harm self or others. Onset of symptoms was February 11, 2023. 09:56 Method Of Arrival: Ambulatory hb 09:56 Acuity: PIA 3 hb Historical: - Allergies: 10:11 No Known Allergies; hb - PMHx: 10:11 GERD; Hypertension; hb - Immunization history:: Adult Immunizations up to date. - Social history:: Smoking status: Patient denies any tobacco usage or history of. Screenin:00 [facility] ED Fall Risk Assessment (Adult) History of falling in the last 3 months, me1 including since admission No falls in past 3 months (0 pts) Confusion or Disorientation No (0 pts) Intoxicated or Sedated No (0 pts) Impaired Gait No (0 pts) Mobility Assist Device Used No (0 pt) Altered Elimination No (0 pt) Score/Fall Risk Level 0 - 2 = Low Risk Maintained a safe environment, Assessed \T\ reinforced patient's understanding of fall precautions, Provided non-skid footwear, Hourly rounding (assess needs \T\ fall precautionary measures) done. Abuse screen: Denies threats or abuse. Nutritional screening: No deficits noted. Tuberculosis screening: No symptoms or risk factors identified. Assessment: 10:00 General: Appears uncomfortable, well groomed, well developed, well nourished, Behavior me1 is calm, cooperative, appropriate for age. General: Reports Right flank pain, nausea, and blood in urine x 5 days. On Levaquin and Flomax since 02/11. Hx of kidney stones. Pain:. Pain: Complains of pain in right flank pain Pain radiates to right lower quadrant Pain currently is 4 out of 10 on a pain scale. Quality of pain is described as sharp, shooting, Pain began 5 days ago Is continuous. Neuro: Level of Consciousness is awake, alert, obeys commands, Oriented to person, place, time, situation, Appropriate for age. Cardiovascular: Capillary refill < 3 seconds Patient's skin is warm and dry. Respiratory: Airway is patent Respiratory effort is even, unlabored, Respiratory pattern is regular, symmetrical. GI: Abdomen is round Bowel sounds present X 4 quads. Abd is soft and non tender X 4 quads. : Reports pain in right flank(s), nausea and hematuria x 5 days. Vital Signs: 09:56 BP 162 / 89; Pulse 54; Resp 16; Temp 98.3; Pulse Ox 98% on R/A; Weight 127.01 kg; hb Height 6 ft. 2 in. ; Pain 4/10; 10:30 BP 148 / 87; Pulse 56; Resp 17; Pulse Ox 100% on R/A; me1 11:00 BP 149 / 92; Pulse 58; Resp 16; Pulse Ox 97% on R/A; me1 11:40 BP 141 / 87; Pulse 59; Resp 16; Pulse Ox 96% on R/A; me1 09:56 Body Mass Index 35.95 (127.01 kg, 187.96 cm) hb 09:56 Pain Scale: Adult hb ED Course: 09:55 Patient arrived in ED. mr 09:55 Mayank Johnson MD is Private Physician. mr 09:55 Johana Orr FNP is [facility]. jh7 09:55 Marcelo Barker MD is Attending Physician. 7 10:00 Patient has correct armband on for positive identification. Bed in low position. Call [facility] light in reach. Side rails up X 1. Provided Education on: POC. Verbalized understanding. . 10:00 No provider procedures requiring assistance completed. [facility] 10:06 Inserted saline lock: 20 gauge in right antecubital area, using aseptic technique. hb Blood collected. 10:11 Triage completed. hb 10:11 Arm band placed on. hb 10:18 CT Stone Protocol In Process Unspecified. EDCO 10:21 Kami Elena, RN is Primary Nurse. me1 10:40 Urinalysis w/ reflexes Sent. me1 10:54 Cristian Cuenca MD is Referral Physician. [facility] 10:54 Referral Physician role handed off by Cristian Cuenca MD 7 10:54 Cristian Cuenca MD is Referral Physician. [facility] 11:51 IV discontinued, intact, bleeding controlled, No redness/swelling at site. Pressure me1 dressing applied. Administered Medications: 10:39 Drug: NS 0.9% IV 1000 ml IV at 1 bolus Per protocol; 1000 mL bolus Route: IV; Rate: 1 me1 bolus; Site: right antecubital; 11:52 Follow up: IV Status: Completed infusion me1 10:39 Drug: Ondansetron IVP 4 mg IVP once; over 2 minutes Route: IVP; Site: right antecubital;me1 11:21 Follow up: Response: No adverse reaction me1 10:40 Drug: morphine IVP or IV 4 mg IVP once over 4 mins Route: IVP; Infused Over: 4 mins; me1 Site: right antecubital; 11:21 Follow up: Response: No adverse reaction; Pain is decreased me1 Medication: 10:00 VIS not applicable for this client. nd1 Outcome: 10:56 Discharge ordered by . [facility] 11:48 Discharged to home ambulatory, with family, me1 11:48 Condition: stable 11:48 Discharge instructions given to patient, family, Instructed on discharge instructions, follow up and referral plans. medication usage, Demonstrated understanding of instructions, follow-up care, medications, Prescriptions given X 2, 11:51 Patient left the ED. me1 Signatures: Dispatcher [employer] EDCO SamayoaShari, Reg Reg mr Marlene Colon, RN RN Johana Solano, HEALTH INFORMATION CLERK HEALTH INFORMATION CLERK [facility] Kami Elena, RN RN me1 Corrections: (The following items were deleted from the chart) 11:27 09:56 Chief complaint: Right flank pain, nausea, and blood in urine x 5 days. On me1 Levaquin and Flomax since 02/11. Hx of kidney stones. hb 11:48 11:00 BP 141 / 87; Pulse 59bpm; Resp 16bpm; Pulse Ox 96% RA; me1 me1
[2023-02-16 12:12] VITALS: TEMP 98.3
[2023-02-16 12:18] VITALS: BP 141/87; O2SAT 96
== END 2023-02-16 11:51 | disposition home or self-care (01) ==
LOC: ER 09:52
DX: N20.0 Calculus of kidney (principal); Z87.442 Personal history of urinary calculi; I10 Essential (primary) hypertension
CPT/HCPCS: 96361; 85025; 36415; 81003; 83690; 80053; 76377; 74176; 96375; 96374; 99284; J2405; J7030